=== PATIENT | male | born 1960 | race Caucasian/White ===

== ENCOUNTER → 2016-07-30 | Outpatient (CLI) | payer OTHER ==
[~2016-07-30] MED LIST: GLIM4TAB2 PO; HYDR-971 PO; IOHEXOL 240 MG/ML 50ML VIAL. IV ONE; IOHEXOL 300 MG/ML 100ML VIAL. IV ONE; LISI1TAB7 PO; MELO-150 PO; METF10002 PO; [UNRECOGNIZED DRUG - CODE] IU
--- NOTE | 2016-07-30 12:23 | KCIC ---
PROCEDURE CT abdomen and pelvis with and without contrast. HISTORY Left lower quadrant pain, started 1 week ago, worse last night. TECHNIQUE Helical CT imaging of the abdomen and pelvis is performed after oral contrast and before and after 100 cc of Omnipaque 300 IV contrast. PQRS: One or more the following individualized dose reduction techniques were utilized for the study: 1. Automated exposure control. 2. Adjustment of the mA and/or kV according to patient size. 3. Use of iterative reconstruction technique. COMPARISON None. FINDINGS Lung bases clear. Cardiac size normal. Mild fatty infiltration of the liver. There is a 1.3 cm cyst in the anterior spleen. Spleen otherwise homogeneous. The gallbladder, pancreas, adrenal glands, and abdominal aortic caliber are normal. There is a 1.9 cm exophytic lesion at the lower pole of the right kidney that is greater than fluid attenuation but could be a hyperdense cyst. Lesion is incompletely characterized. There is a 5.7 centimeter exophytic cyst at the lower pole of the left kidney. Kidneys enhance symmetrically without hydronephrosis. There is no renal, ureteral, or bladder calculus. Stomach unremarkable. No dilated small bowel. There is focal diverticulitis of the distal descending colon, image 63, coronal image 28. There is no perforation or peridiverticular abscess. There are other scattered diverticula in the colon without inflammation. The appendix is normal. No abdominal adenopathy or free fluid. Small fat containing periumbilical hernia. Urinary bladder is normal. Prostate size normal. No pelvic free fluid. No acute bone abnormality. Partial butterfly type vertebral body posteriorly of T10. IMPRESSION 1. Focal diverticulitis of the distal descending colon. No perforation or peridiverticular abscess. 2. Small exophytic lesion at the lower pole of the right kidney is not definitely a cyst. There is a large left renal cyst. Recommend further evaluation with outpatient renal ultrasound. 3. Mild fatty infiltration of the liver. 4. Small splenic cyst. Electronically signed by: Jasbir Rubio MD (Jul 30, 2016 12:21:49)
== END | disposition home or self-care (01) ==
LOC: KCIC CT 10:43
PROVIDERS: ATTEND Physician Assistant
DX: R10.32 Left lower quadrant pain (principal); K76.0 Fatty (change of) liver, not elsewhere classified; D73.4 Cyst of spleen
CPT/HCPCS: 74178; 82565; Q9966; Q9967

== ENCOUNTER 2017-04-24 11:11 | Emergency (ER) | payer OTHER ==
[~2017-04-24] VITALS: Ht 180.3 cm; Wt 129.3 kg
[~2017-04-24 11:11] MED LIST changes: -IOHEXOL 240 MG/ML 50ML VIAL. IV ONE; -IOHEXOL 300 MG/ML 100ML VIAL. IV ONE; -MELO-150 PO; +MELO15TA23 PO; +METF-620 PO; -METF10002 PO
[2017-04-24 11:27] VITALS: BP 143/86
--- NOTE | 2017-04-24 11:32 | PHYS DOC ---
Past Medical History Past Medical History: Diabetes-Type II, Hypertension Past Surgical History: No Surgical History Alcohol Use: None Drug Use: None Adult General Chief Complaint Chief Complaint: LACERATION/AVULSION [facility] HPI Patient is a 56 year old male who presents with a jagged laceration to his right hand. The patient has ACB radial with an antenna and while he was cranking the antenna up the handle snapped. This allowed the cable to freefall and the patient started to grab it with his hand causing a laceration. He is unsure of his tetanus status. The patient wrapped the hand in a towel and immediately presented to the emergency department. Bleeding is currently controlled. Review of Systems Review of Systems Constitutional: Denies fever or chills [] Respiratory: Denies cough or shortness of breath [] Cardiovascular: No additional information not addressed in HPI [] Musculoskeletal: Denies back pain or joint pain [] Integument: See history of present illness Neurologic: Denies headache, focal weakness or sensory changes [] Endocrine: Denies polyuria or polydipsia [] All other systems were reviewed and found to be within normal limits, except as documented in this note. Current Medications Current Medications Current Medications Medications (Trade) Dose Ordered Sig/Adarsh Start Time Stop Time Status Last Admin Dose Admin Acetaminophen/ Hydrocodone Bitart (Lortab 10/325) 1 tab 1X ONCE 04/24/17 12:00 04/24/17 12:01 DC 04/24/17 11:36 1 TAB Diphtheria/ Tetanus/Acell Pertussis (Boostrix) 0.5 ml ONCE ONCE 04/24/17 12:00 04/24/17 12:01 DC 04/24/17 12:51 0.5 ML Lidocaine/ Epinephrine (Xylocaine 2%-Epi 1:100,000) 20 ml 1X ONCE 04/24/17 12:00 04/24/17 12:01 DC 04/24/17 12:00 20 ML Allergies Allergies Allergies Coded Allergies Type Severity Reaction Last Updated Verified No Known Drug Allergies 02/18/16 No Physical Exam Physical Exam Constitutional: Well developed, well nourished, no acute distress, non-toxic appearance. [] Cardiovascular:Heart rate regular rhythm, no murmur [] Lungs & Thorax: Bilateral breath sounds clear to auscultation [] Abdomen: Bowel sounds normal, soft, no tenderness, no masses, no pulsatile masses. [] Skin: Back: No tenderness, no CVA tenderness. [] Extremities: ROM intact, no edema. [] Neurologic: Alert and oriented X 3, normal motor function, normal sensory function, no focal deficits noted. [] Psychologic: Affect normal, judgement normal, mood normal. [] Current Patient Data Vital Signs Vital Signs Date Time Temp Pulse Resp B/P (MAP) Pulse Ox O2 Delivery O2 Flow Rate FiO2 04/24/17 11:36 18 96 Room Air 04/24/17 11:27 96 143/86 (105) 04/24/17 11:12 97.8 97.8 EKG EKG [] Radiology/Procedures Radiology/Procedures Procedure: Laceration repair Indications: 1.5 cm jagged laceration to the palmar surface of the right hand that is deep and gaping Patient consent: The procedure and risks were explained in detail. Questions were encouraged and answered. Anesthesia: 2% buffered lidocaine with epinephrine, local Description of procedure: The area was prepped and draped using sterile techniques. Wound was cleansed with antiseptic solution. Local infiltration with 2% lidocaine were well-tolerated. Nonabsorbable suture material was used. A sterile dressing was applied. Number of stitches: 7 Patient tolerated the procedure well. Complications: None Estimated blood loss less than 10 ml Disposition: Wound care instructions were given. Patient discharged home. Follow up in 7-10 days for suture removal. Course & Med Decision Making Course & Med Decision Making Pertinent Labs and Imaging studies reviewed. (See chart for details) 1. Laceration 2. Need for tetanus vaccination Following repair of this laceration the patient was also given a tetanus vaccine and placed on an antibiotic as well as pain medication. Please do not operate heavy machinery or drive while taking the pain medication. Keep wound clean and dry. See follow-up instructions for care of the laceration. Follow-up in 7-10 days for suture removal. If any signs of infection occur please follow- up with your primary care provider or return to the ED. Dragon Disclaimer Dragon Disclaimer This electronic medical record was generated, in whole or in part, using a voice recognition dictation system. Departure Departure Referrals: LISSETH MARIO MD (PCP) Scripts Amoxicillin/Potassium Clav (AMOX TR-K CLV 500-125 MG TAB) 1 Each Tablet 1 TAB PO BID, #20 TAB Prov: BRANDY RON APRN 04/24/17 Hydrocodone/Apap 5-325 (NORCO 5-325 TABLET) 1 Each Tablet 1-2 TAB PO Q4-6HRS, #20 TAB Prov: BRANDY RON APRN 04/24/17 BRANDY RON APRN Apr 24, 2017 11:32
[2017-04-24] MEDS ORDERED: DIPHTH,PERTUSS(ACELL),TET TOX 0.5 ML DISP.SYRIN. VAX IM ONE (12:00)
[2017-04-24] MEDS ORDERED: LIDOCAINE 2%/EPI 1:100,000 20 ML VIAL. IJ ONE (12:00)
[2017-04-24] MEDS ORDERED: HYDROcodone/APAP 10/325 1 TAB TABLET PO ONE (12:00)
--- NOTE | 2017-04-24 12:12 | RAD ---
HAND RIGHT 3V Clinical Indication: Trauma with laceration to the palm of the right hand. Comparison: None. Technique: Frontal, oblique and lateral views of the right hand are obtained. Findings: No acute fracture or dislocation is seen. Carpal bones remain aligned. Soft tissue swelling with probable laceration is present between the first and second digits. No radiopaque foreign body is seen. IMPRESSION: No acute osseous injury seen.
[2017-04-24] MEDS ORDERED: HYDR-971 PO (13:35)
[2017-04-24] MEDS ORDERED: AMOX1TAB10 PO (13:35)
== END 2017-04-24 14:00 | disposition home or self-care (01) ==
LOC: ER 11:11
DX: S61.411A Laceration without foreign body of right hand, initial encounter (principal); I10 Essential (primary) hypertension; E11.9 Type 2 diabetes mellitus without complications; W23.0XXA Caught, crushed, jammed, or pinched between moving objects, initial encounter; Y93.89 Activity, other specified; Y99.8 Other external cause status; Y92.89 Other specified places as the place of occurrence of the external cause
CPT/HCPCS: 12001; 73130; 90471; 90715; 99284; J3490

== ENCOUNTER 2017-04-24 15:36 | Emergency (ER) | payer OTHER ==
[~2017-04-24 15:36] MED LIST changes: +AMOX1TAB10 PO
[2017-04-24 15:50] VITALS: BP 140/88
--- NOTE | 2017-04-24 16:21 | PHYS DOC ---
Past Medical History Past Medical History: Diabetes-Type II, Hypertension Past Surgical History: No Surgical History Alcohol Use: None Drug Use: None Adult General Chief Complaint Chief Complaint: WOUND CHECK [facility] HPI Patient is a 56 year old presents to the emergency department with complaints of right hand laceration. Patient was evaluated earlier today in the emergency department after lacerating his hand on his CB cable line and handle. Patient had the laceration repaired and went home. He states on arrival home he noted bloody dressing and when he removed it he states that the wound was gaping open. He returns for further evaluation. He has no complaints on arrival hemostasis obtained prior to arrival. Review of Systems Review of Systems Constitutional: Denies fever or chills [] Eyes: Denies change in visual acuity, redness, or eye pain [] HENT: Denies nasal congestion or sore throat [] Respiratory: Denies cough or shortness of breath [] Cardiovascular: No additional information not addressed in HPI [] GI: Denies abdominal pain, nausea, vomiting, bloody stools or diarrhea [] : Denies dysuria or hematuria [] Musculoskeletal: Denies back pain or joint pain [] Integument: Laceration Neurologic: Denies headache, focal weakness or sensory changes [] Endocrine: Denies polyuria or polydipsia [] All other systems were reviewed and found to be within normal limits, except as documented in this note. Allergies Allergies Allergies Coded Allergies Type Severity Reaction Last Updated Verified No Known Drug Allergies 02/18/16 No Physical Exam Physical Exam Constitutional: Well developed, well nourished, no acute distress, non-toxic appearance. [] Extremities: Right hand: Thenar aspect with a 2.5 cm gaping laceration. It is partial-thickness. Patient has full range of motion of the thumb and forefinger without difficulty. Neurovascular intact distally. Remainder right hand exam unremarkable. Current Patient Data Vital Signs Vital Signs Date Time Temp Pulse Resp B/P (MAP) Pulse Ox O2 Delivery O2 Flow Rate FiO2 04/24/17 15:50 98.6 88 16 97 Room Air 98.6 EKG EKG [] Radiology/Procedures Radiology/Procedures [] Course & Med Decision Making Course & Med Decision Making Pertinent Labs and Imaging studies reviewed. (See chart for details) []Procedure note: Laceration anesthetized with 1% lidocaine 3 mL. Wound was cleansed with Betadine and normal saline, copiously irrigated. Wound was explored for foreign body, 4 sutures were removed. Multiple debridement. The wound was repaired undermining with 6-0 Vicryl 4 simple interrupted sutures. Skin was closed with 3-0 Ethilon, #5 simple interrupted sutures. Patient tolerated procedure well. Thing applied by nursing staff. Dragon Disclaimer Dragon Disclaimer This electronic medical record was generated, in whole or in part, using a voice recognition dictation system. Departure Departure Impression: Primary Impression: Hand laceration Disposition: 01 HOME, SELF-CARE Condition: STABLE Referrals: LISSETH MARIO MD (PCP) Patient Instructions: Suture Removal-Brief Problem Qualifiers Primary Impression: Hand laceration Encounter type: subsequent encounter Foreign body presence: with foreign body Laterality: right Qualified Codes: S61.421D - Laceration with foreign body of right hand, subsequent encounter JOLENE HENRY APRN Apr 24, 2017 16:21
== END 2017-04-24 16:48 | disposition home or self-care (01) ==
LOC: ER 15:36
DX: S61.411A Laceration without foreign body of right hand, initial encounter (principal); I10 Essential (primary) hypertension; E11.9 Type 2 diabetes mellitus without complications; W26.8XXA Contact with other sharp object(s), not elsewhere classified, initial encounter; Y93.89 Activity, other specified; Y92.89 Other specified places as the place of occurrence of the external cause; Y99.8 Other external cause status
CPT/HCPCS: 12020; 12041; 99284-25

== ENCOUNTER 2017-10-19 10:00 | Inpatient (IN) | payer OTHER ==
[~2017-10-19] VITALS: Ht 182.9 cm; Wt 126.1 kg
[~2017-10-19 10:00] MED LIST changes: -METF-620 PO; +METF10007 PO
[2018-01-03] MEDS ORDERED: FERR325T14 PO (09:44)
[2018-01-03] MEDS ORDERED: EXEN10PE3 SQ (09:44)
[2018-01-03] MEDS ORDERED: MULT-460 PO (17:46)
[2018-01-03] MEDS ORDERED: CHOL100013 PO (17:46)
[2018-01-03] MEDS ORDERED: HYDR-2758 PO (17:46)
--- NOTE | 2018-01-17 15:19 | PDOC1 ---
History and Physical Date of Admission Date of Admission DATE: 01/18/18 Identification/Chief Complaint Chief Complaint left knee osteoarthritis pain Source Source: Chart review History of Present Illness History of Present Illness The patient is a 56 y/o male with bilateral knee pain for several months. The left knee is more painful than the right. He describes the pain as sharp and throbbing and rates its a 10/10. He notes popping and tingling occasionally. The pain is constant and it interferes with his sleep. He has taken Meloxicam, worn a knee brace, and had a cortisone injection in the left knee, but none provided him pain relief. 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 Past Medical History Cardiovascular: HTN Endocrine: Diabetes Past Surgical History Past Surgical History: No pertinent history Family History Family History: Hypertension Social History Smoke: Quit ALCOHOL: none Drugs: None Current Medications Current Medications Current Medications Ondansetron HCl (Zofran) 4 mg PRN Q6HRS PRN IV NAUSEA/VOMITING; Start 01/18/18 at 07:00; Stop 01/19/18 at 06:59 Fentanyl Citrate (Fentanyl 2ml Vial) 25 mcg PRN Q5MIN PRN IV MILD PAIN; Start 01/18/18 at 07:00; Stop 01/19/18 at 06:59 Fentanyl Citrate (Fentanyl 2ml Vial) 50 mcg PRN Q5MIN PRN IV MODERATE TO SEVERE PAIN; Start 01/18/18 at 07:00; Stop 01/19/18 at 06:59 Morphine Sulfate (Morphine Sulfate) 1 mg PRN Q10MIN PRN IV SEVERE PAIN; Start 01/18/18 at 07:00; Stop 01/19/18 at 06:59 Ringer's Solution 1,000 ml @ 30 mls/hr Q24H IV ; Start 01/18/18 at 07:00; Stop 01/18/18 at 18:59 Lidocaine HCl (Xylocaine-Mpf 1% 2ml Vial) 2 ml PRN 1X PRN ID IV START; Start at 07:00; Stop 01/19/18 at 06:59 Hydromorphone HCl (Dilaudid) 0.5 mg PRN Q10MIN PRN IV SEV PAIN, Second choice; Start 01/18/18 at 07:00; Stop 01/19/18 at 06:59 Prochlorperazine Edisylate (Compazine) 5 mg PACU PRN PRN IV NAUSEA, MRX1; Start 01/18/18 at 07:00; Stop 01/19/18 at 06:59 Morphine Sulfate 5 mg/Ketorolac Tromethamine 30 mg/Ropivacaine 60 ml/ Epinephrine HCl 0.5 mg/Sodium Chloride 100 ml @ 100 mls/hr 1X ONCE INT ART ; Start 01/18/18 at 06:00; Stop 01/18/18 at 06:59 Active Scripts Active Reported Vitamin D (Cholecalciferol (Vitamin D3)) 1,000 Unit Capsule 125 Mg PO DAILY Multiple Vitamin (Multivitamin With Minerals) 1 Each Tablet 1 Each PO DAILY Hydrocodone-Apap 5-325 (Hydrocodone Bit/Acetaminophen) 1 Each Tablet 1 Tab PO PRN Q6HRS PRN Ferrous Sulfate 325 Mg Tablet 325 Mg PO DAILY Byetta (Exenatide) 10 Mcg/0.04 Ml Pen.injctr 10 Mcg SQ BIDAC Lisinopril-Hctz 20-25 Mg Tab (Lisinopril/Hydrochlorothiazide) 1 Each Tablet 0.5 Tab PO DAILY Glimepiride 4 Mg Tablet 1 Tab PO DAILY Metformin Hcl 1,000 Mg Tablet 1,000 Mg PO BID Meloxicam 15 Mg Tablet 1 Tab PO DAILY Allergies Allergies: Coded Allergies: No Known Drug Allergies (Unverified , 02/18/16) Physical Exam General: Alert, Oriented X3, Cooperative, No acute distress HEENT: Atraumatic, EOMI Lungs: Normal air movement Heart: RRR Abdomen: Soft Extremities: No clubbing, No cyanosis, Normal pulses, Other (LEFT KNEE: Varus alignment. No masses. No detectable effusion. Tenderness on the medial and lateral joint lines. Range of motion is 15-115 degrees. There is crepitus with range of motion, and pain at the extremes of motion. The knee is stable to varus and valgus stress without subluxation or laxity. Muscle strength is normal (5/5) for quadriceps and hamstrings, and muscle tone is normal. The skin is normal with no scars, rashes, lesions or ulcers. Light touch sensation is intact. No edema and no varicosities. Dorsalis pedis pulse is intact and capillary refill is normal.) Skin: No rashes, No breakdown, No significant lesion Neuro: Normal speech, Sensation intact Psych/Mental Status: Mental status NL, Mood NL Images Images IMAGING REPORT 45 degree PA weightbearing view of both knees, lateral, and patella view of the left knee. Clinical information: Left knee pain Comparison: 2012 Findings Bones: For Joints: There is narrowing of both knees joints medially, worse on the left knee which is nearly bone on bone. There is no apparent sclerosis. This narrowing has progressed significantly since 2012. There are now also prominent patellar enthesophytes of bilateral knees. These have also progress since 2012. Soft tissue: Normal. Impression: Osteoarthritis of both knees, and other degenerative changes, such as enthesophytes. Significant progression since 2011. Dictated and Signed Using Voice Recognition Software Jose Lawrence MD. IMAGING REPORT Joint survey, hips knees and ankles Clinical information: Preoperative for total knee arthroplasty Comparison: None. Findings Bones: The angle between the right hip-ankle mechanical axis and the femoral shaft is 5 degrees The angle between the left hip-ankle mechanical axis and the femoral shaft is 5 degrees. Right lower extremity alignment shows 1 degree of varus alignment. The left knee shows 5 degrees of varus alignment. Joints: There is narrowing of the right knee joint medially. There is significant narrowing of the left knee joint medially. There is mild narrowing of the right knee joint medially. 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 Soft tissue: Normal. Impression: Varus alignment of the left knee, 5 degrees Near normal alignment of the right knee. The difference between the mechanical axis and femoral shaft anatomic axis is 5 degrees bilaterally. Dictated and Signed Using Voice Recognition Software Jose Lawrence MD VTE Prophylaxis Ordered VTE Prophylaxis Devices: Yes VTE Pharmacological Prophylaxi: Yes Assessment/Plan Assessment/Plan Left knee osteoarthritis pain. The patient is a 56 year old male with bilateral knee osteoarthritis. He has tried nonoperative treatment without success. The arthritis pain impacts his quality of life on a daily basis. We discussed the risks benefits and alternatives. He would like to proceed with a left total knee replacement. We will send him to the [facility] preoperatively, and he will schedule at his convenience. We discussed the risks and benefits of knee replacement including bleeding, infection, post-operative stiffness, instability , holden-prosthetic fracture, DVT and PE. We discussed the increased risk of revision due to his young age and job demands. All questions were answered. He would like to proceed with the surgery to improve his pain and range of motion. PRIYANKA OBANDO Jan 17, 2018 15:19
[2018-01-18] VITALS (9 sets, daily range): BP systolic 133–164; BP diastolic 63–92
[2018-01-18] MEDS ORDERED: VANCOMYCIN 10GM VIAL for OR. ONE (05:54)
[2018-01-18] MEDS ORDERED: TOBRAMYCIN POWDER 1.2 GM VIAL. ONE (05:54)
[2018-01-18] MEDS ORDERED: MORPHINE SULFATE 5 MG, KETOROLAC 30MG VIAL 30 MG, ROPIVacaine 0.5% PF 60 ML, EPINEPHrin... INT ART ONE ×5 (06:00)
[2018-01-18] MEDS ORDERED: TRANEXAMIC ACID 1,000 MG in IV NS 50ML -- 1ST BAG INJ ONE (06:00)
[2018-01-18] MEDS ORDERED: MELOXICAM 7.5 MG TABLET PO PRN (06:00)
[2018-01-18] MEDS ORDERED: HYDROcodone/APAP 7.5/325MG 1 TAB TABLET PO PRN ×2 (06:00→09:45)
[2018-01-18] MEDS ORDERED: VANCOMYCIN 1 GM VIAL. ONE (06:01)
[2018-01-18] MEDS ORDERED: LIDOCAINE 2% 100 MG/5 ML SYRINGE. ONE (06:04)
[2018-01-18] MEDS ORDERED: PROPOFOL 20 ML IV ONE (06:54)
[2018-01-18] MEDS ORDERED: MIDAZOLAM HCL/PF 2 MG/2 ML VIAL. ONE (06:55)
[2018-01-18] MEDS ORDERED: fentaNYL PF VIAL 250 MCG/5 ML VIAL ONE (06:55)
[2018-01-18] MEDS ORDERED: MORPHINE SULFATE 2 MG/ML VIAL. IV PRN ×2 (07:00→09:45)
[2018-01-18] MEDS ORDERED: PROCHLORPERAZINE 10 MG/2 ML VIAL. IV PRN ×2 (07:00→09:45)
[2018-01-18] MEDS ORDERED: IV RINGERS,LACTATED 1000ML 1,000 ML IV SCH (07:00)
[2018-01-18] MEDS ORDERED: LIDOCAINE 1% PF 2 ML VIAL. ID PRN (07:00)
[2018-01-18] MEDS ORDERED: fentaNYL PF VIAL 100 MCG/2 ML VIAL IV PRN ×4 (07:00→09:45)
[2018-01-18] MEDS ORDERED: HYDROmorphone 2 MG/ML VIAL IV PRN (07:00)
[2018-01-18] MEDS ORDERED: ONDANSETRON PF 4 MG/2 ML VIAL. IV PRN (07:00)
[2018-01-18] MEDS ORDERED: TRANEXAMIC ACID 1,000 MG in IV NS 50ML -- 2ND BAG INJ ONE (08:00)
[2018-01-18] MEDS ORDERED: DEXAMETHASONE SOD PHOS 20 MG/5 ML VIAL. ONE (08:09)
[2018-01-18] MEDS ORDERED: ONDANSETRON PF 4 MG/2 ML VIAL. ONE (08:09)
[2018-01-18] MEDS ORDERED: HYDROmorphone 2 MG/ML VIAL ONE (08:24)
[2018-01-18] MEDS ORDERED: 0.9 % SODIUM CHLORIDE 10 ML DISP.SYRIN. IV PRN (09:45)
[2018-01-18] MEDS ORDERED: ZOLPIDEM 5 MG TABLET. PO PRN (09:45)
[2018-01-18] MEDS ORDERED: ACETAMINOPHEN 325 MG TABLET. PO PRN (09:45)
[2018-01-18] MEDS ORDERED: traMADol 50 MG TABLET PO PRN ×2 (09:45)
[2018-01-18] MEDS ORDERED: diphenhydrAMINE 50 MG/ML VIAL IV PRN (09:45)
[2018-01-18] MEDS ORDERED: METOCLOPRAMIDE HCL 10 MG/2 ML VIAL. IV PRN (09:45)
[2018-01-18] MEDS ORDERED: MORPHINE SULFATE 4 MG/ML VIAL. IV PRN ×2 (09:45)
[2018-01-18] MEDS ORDERED: CALCIUM CARBONATE 500 MG TAB.CHEW PO PRN (09:45)
[2018-01-18] MEDS ORDERED: DEXTROSE 50% 25 GM / 50ML DISP.SYRIN. IV PRN (09:45)
[2018-01-18] MEDS ORDERED: PROCHLORPERAZINE 5 MG TABLET. PO PRN (09:45)
[2018-01-18] MEDS ORDERED: MORPHINE SULFATE 10 MG/ML VIAL. IV PRN (09:45)
[2018-01-18] MEDS ORDERED: HYDROcodone/APAP 10/325 1 TAB TABLET PO PRN (09:45)
--- NOTE | 2018-01-18 09:48 | PDOC4 ---
Operative Note Operative Note Date of Procedure: January 18, 2018 Pre-Op Diagnosis: Osteoarthritis left knee Post-Op Diagnosis: Osteoarthritis left knee Procedure: left total knee arthroplasty Surgeon: Maggie Lawrence MD Gas Turbine Mechanic: Rae Ramirez PA-C Anesthesia: General EBL: 100 mL Specimens Obtained: left knee bone and soft tissue Complications: none Implant Company: [employer] Drains: hemovac plus pain catheter Tourniquet time: 51 Minutes Tourniquet Pressure: 350 mm Hg Indications for Procedure: Arthritis pain unrelieved by nonoperative management. Findings: Severe osteoarthritis with bone on bone contact medially with full thickness cartilage loss in the patellofemoral and lateral compartments Implants used: Size 6 left bicruciate stabilized Journey II BCS Oxinium femoral component, size 6 left Journey nonporous tibial baseplate, size 5-6 11 mm left Journey II BCS XLPE constrained articular insert, 38 mm oval Karly II resurfacing patellar component Procedure in Detail: The patient was identified in the preoperative holding area, and the correct left lower extremity was marked by me. The patient was taken to the operating room where the patient was anesthetized by the Department of Anesthesia. Preoperative antibiotics were given intravenously. Tranexamic acid 1 g was given intravenously for intraoperative hemostasis. A "time-out" procedure was performed. The patient was positioned supine on the operative table with a tourniquet on the upper left thigh. The left lower limb was thoroughly prepped and draped in sterile fashion. An impervious stockinet and adhesive drape were used such that the skin was entirely covered. An Garcia leg boucher was used. The operating team wore personal exhaust-ventilated hoods. The limb was elevated to exsanguinate it, and the tourniquet was inflated. A midline skin incision was made with a scalpel using the patella and tibial tubercle as landmarks. Electrocautery was used for hemostasis. My physical therapist assistant used rake retractors. A medial parapatellar arthrotomy incision was used with extension into the distal quadriceps tendon. The patella was retracted laterally and Hohmann retractors were now used by my physical therapist assistant. Excess synovium, the menisci, and the cruciate ligaments were resected sharply. The patella was assessed and excess synovium and osteophytes around the patellar articulation were removed. The patella was measured with a caliper, cut freehand with a saw using caliper measurements, sized, and then drilled for an oval three-pegged patella component. Periarticular anesthetic injection was used in the suprapatellar pouch and distal quadriceps muscle. Whitesides's line and the transepicondylar axis were marked on the femur. An intra-medullary 5 degree cutting guide was pinned to the femur, and a distal femoral cut was made with an oscillating saw. No additional distal femoral resection was required. My physical therapist assistant held Hohmann retractors and an [employer] retractor to protect the medial and lateral collateral ligaments, the patellar tendon, the skin and the other soft tissues. A posterior referencing guide was applied with external rotation of 3 to match Whitesides line. A 5-in-1 Journey II cutting guide was then applied and pinned to the femur. The posterior, anterior, and all chamfer cuts were made with the oscillating saw. An extramedullary guide was pinned to the tibia and rotational alignment and the planned resection thickness assessed. An external alignment pepper was used to verify the planned cut in the varus-valgus plane and regarding posterior slope referencing the tibial tubercle, the tibial shaft, the ankle joint, and the second metatarsal. The upper tibia was cut made with an oscillating saw. My physical therapist assistant held Hohmann retractors and a posterior cruciate ligament retractor to protect the medial and lateral collateral ligaments, the patellar tendon, the skin, the peroneal nerve and the other soft tissues. The upper tibia was sized with a trial baseplate. The posterior compartment was cleared of osteophytes and loose bodies. Periarticular anesthetic injection was used in the posterior compartment. The box cut for a posterior stabilized component was made. A preliminary reduction was performed with a trial femur, trial tibial baseplate and trial polyethylene. Soft-tissue balancing was now performed, and extension and rotation of the alignments was checked using a guide pepepr in the tibial trial and a guide pin in the femur. No additional releases were required. The stability was assessed using different thicknesses of tibial articular surface to find satisfactory stability and good range of motion. The rotation of the tibial component was marked on the upper tibia. Final trial reduction was now performed verifying patella tracking and tibiofemoral stability and alignment. The tibia preparation was completed with a drill, saw, and fin punch at the previously noted rotation. The final implants were verified and opened. Outer gloves were changed by the operating team. The bone cuts were washed thoroughly with the [place] InterPulse device and dried. I asked Ms. Ramirez to leave the room while the cement was mixed. Two packages of Marion + Nephew Rally HV bone cement were mixed in powdered form with Vancomycin 1gm and Tobramycin 1.2 gm, and then vacuum-mixed with the monomer, and placed into a cement gun. The cut surfaces of the bone were thoroughly dried with Salas-tip suction and with laparotomy sponges for cement interdigitation. The final components were cemented into place. The knee was kept at full extension while the cement hardened, and excess cement was removed. Tranexamic acid 1 g was redosed intravenously for additional intraoperative hemostasis. The tourniquet was released, and electrocautery was used for hemostasis. A final periarticular anesthetic injection was used for pain relief. Ms. Ramirez returned. A final check of [id number] and stability was made, and the polyethylene implant final size was chosen. The polyethylene implant was secured to the tibial baseplate, and the knee was reduced a final time and range of motion and stability was confirmed. Thorough irrigation was used. Hemovac and pain catheter were used. The arthrotomy was closed with interrupted [id number] # 1 PDS suture. The arthrotomy incision was then run with #1 STRATAFIX Symmetric PDS Plus Knotless suture. The subcutaneous tissues were closed with #2-0 Vicryl by my physical therapist assistant. The skin was approximated with michelle by my physical therapist assistant. The skin incision was then covered and reinforced with Acticoat and a SKYE single use negative pressure wound therapy dressing Needle and sponge counts were correct. There were no apparent complications. The patient returned to the recovery room in stable condition. MAGGIE LAWRENCE MD Jan 18, 2018 09:48
--- NOTE | 2018-01-18 10:37 | RAD ---
Two-view left knee dated 01/18/2018. No comparison available. Clinical data indication: Postop knee arthroplasty. FINDINGS: 3 views left knee show interval total knee arthroplasty. Femoral and tibial components are intact. No periprosthetic fracture or malalignment. Overlying skin michelle with soft tissue swelling and soft tissue gas. Suprapatellar drain in place. IMPRESSION: Status post left knee arthroplasty. Electronically signed by: Dl Ryan MD (01/18/2018 10:34 AM) [id number]
[2018-01-18] MEDS ORDERED: INSULIN LISPRO 100 UNIT/ML 3ML VIAL. SQ ONE (11:15)
[2018-01-18] MEDS: ceFAZolin SODIUM 3 GM in IV DEXTROSE 5% 100ML 100 ML IV SCH ×2 (14:20→19:23)
[2018-01-18] MEDS: MULTIVITAMIN with MINERAL TABLET. PO SCH (14:21)
[2018-01-18] MEDS: SENNOSIDES/DOCUSATE 8.6/50MG TABLET. PO SCH (14:21)
[2018-01-18] MEDS: CHOLECALCIFEROL (VITAMIN D3) 5,000 UNIT CAPSULE PO SCH (14:21)
[2018-01-18] MEDS: GLIMEPIRIDE 2 MG TABLET. PO SCH (14:22)
[2018-01-18] MEDS: hydroCHLOROthiazide 12.5 MG CAPSULE PO SCH (14:23)
[2018-01-18] MEDS: LISINOPRIL 10 MG TABLET PO SCH (14:23)
[2018-01-18] MEDS: FERROUS SULFATE 325 MG TABLET. PO SCH (17:24)
[2018-01-18] MEDS: EXENATIDE 10 MCG SQ SCH (17:29)
[2018-01-18] MEDS: KETOROLAC 30MG VIAL 30 MG, BUPIVACAINE MPF 0.25% 20 ML, EPINEPHrine 0.5 MG in TOTAL VOL... INT ART SCH (18:21)
[2018-01-18] MEDS: IV DEXTROSE 5 %-0.45 % NACL 1,000 ML IV SCH ×2 (19:23→19:37)
[2018-01-18] MEDS: ASPIRIN ENTERIC COATED 325 MG TABLET.DR. PO SCH (21:00)
[2018-01-19] MEDS: ceFAZolin SODIUM 3 GM in IV DEXTROSE 5% 100ML 100 ML IV SCH (01:36)
[2018-01-19] MEDS: oxyCODONE/APAP 7.5/325 1 TAB TABLET PO PRN ×2 (01:54→06:31)
[2018-01-19 02:25] VITALS: BP 115/71
[2018-01-19] MEDS: IV DEXTROSE 5 %-0.45 % NACL 1,000 ML IV SCH ×2 (05:37→15:37)
[2018-01-19 05:49] LABS: HEMOGLOBIN 12.6 g/dL (13.0-17.5)
[2018-01-19] MEDS: KETOROLAC 30MG VIAL 30 MG, BUPIVACAINE MPF 0.25% 20 ML, EPINEPHrine 0.5 MG in TOTAL VOL... INT ART SCH (05:56)
[2018-01-19] MEDS ORDERED: MAGNESIUM HYDROXIDE 2,400 MG/30 ML ORAL.SUSP. PO PRN (06:00)
[2018-01-19 06:12] VITALS: BP 126/75
[2018-01-19] MEDS: GLIMEPIRIDE 2 MG TABLET. PO SCH (07:41)
[2018-01-19] MEDS: CHOLECALCIFEROL (VITAMIN D3) 5,000 UNIT CAPSULE PO SCH (07:42)
[2018-01-19] MEDS: FERROUS SULFATE 325 MG TABLET. PO SCH ×2 (07:42→17:13)
[2018-01-19] MEDS: SENNOSIDES/DOCUSATE 8.6/50MG TABLET. PO SCH (07:42)
[2018-01-19] MEDS: ASPIRIN ENTERIC COATED 325 MG TABLET.DR. PO SCH ×2 (07:42→20:32)
[2018-01-19] MEDS: MULTIVITAMIN with MINERAL TABLET. PO SCH (07:42)
[2018-01-19] MEDS: hydroCHLOROthiazide 12.5 MG CAPSULE PO SCH (07:46)
[2018-01-19] MEDS: LISINOPRIL 10 MG TABLET PO SCH (07:47)
[2018-01-19] MEDS: EXENATIDE 10 MCG SQ SCH ×2 (07:49→17:14)
[2018-01-19] MEDS ORDERED: NON FORMULARY ITEM (Multivitamin With Minerals (Multiple Vitamin) 1 EACH) PO SCH (09:00)
[2018-01-19 11:50] VITALS: BP 144/78
--- NOTE | 2018-01-19 12:04 | PDOC ---
PROGRESS NOTES Subjective Subjective Doing well today. States he has some soreness in his knee. Objective Vital Signs Vital Signs Date Time Temp Pulse Resp B/P (MAP) Pulse Ox O2 Delivery O2 Flow Rate FiO2 01/19/18 11:50 108 144/78 (100) 01/19/18 08:10 Room Air 01/19/18 06:31 20 95 01/19/18 06:12 98.9 98.9 01/19/18 03:00 2.0 Physical Exam Postop dressing clean and dry. Hemovac and IAC in place. Calf soft and nontender with a negative Negin's sign. Good plantarflexion and dorsiflexion at foot, with no evidence of neurovascular injury. Peripheral pulses and light touch sensation intact. Labs Laboratory Tests Test 01/18/18 06:19 01/18/18 09:48 01/18/18 16:31 01/18/18 20:33 Glucose (Fingerstick) 218 mg/dL (70-99) 291 mg/dL (70-99) 268 mg/dL (70-99) 170 mg/dL (70-99) Test 01/19/18 04:45 01/19/18 06:24 01/19/18 11:44 Hemoglobin 12.6 g/dL (13.0-17.5) Hematocrit 36.0 % (39.0-53.0) Mean Corpuscular Hemoglobin Concent 35 g/dL (31-37) Glucose (Fingerstick) 169 mg/dL (70-99) 219 mg/dL (70-99) Laboratory Tests Test 01/18/18 16:31 01/18/18 20:33 01/19/18 04:45 01/19/18 06:24 Glucose (Fingerstick) 268 mg/dL (70-99) 170 mg/dL (70-99) 169 mg/dL (70-99) Hemoglobin 12.6 g/dL (13.0-17.5) Hematocrit 36.0 % (39.0-53.0) Mean Corpuscular Hemoglobin Concent 35 g/dL (31-37) Test 01/19/18 11:44 Glucose (Fingerstick) 219 mg/dL (70-99) Imaging Postop x-ray images and report reviewed. Satisfactory TKA without apparent complications. Assessment Assessment POD #1 left TKA Plan Plan of Care Continue POC including DVT ppx and therapy. He is planning to do outpt PT at [facility] at discharge. PRIYANKA OBANDO Jan 19, 2018 12:04
[2018-01-19] MEDS ORDERED: DEXTROSE 50% 25 GM / 50ML DISP.SYRIN. IV PRN (12:15)
[2018-01-19] MEDS: MELOXICAM 7.5 MG TABLET PO SCH (12:34)
[2018-01-19] MEDS: INSULIN LISPRO 300 UNITS/3 ML INSULN.PEN. SQ SCH ×2 (12:35→17:18)
[2018-01-19] MEDS: oxyCODONE/APAP 5/325 1 TAB TABLET PO PRN ×4 (12:35→23:14)
[2018-01-19] MEDS ORDERED: BISACODYL 10 MG SUPP.RECT. PR PRN (16:00)
[2018-01-19 19:15] VITALS: BP 122/65
[2018-01-20 05:20] VITALS: BP 131/79
[2018-01-20] MEDS: oxyCODONE/APAP 5/325 1 TAB TABLET PO PRN (05:37)
[2018-01-20 05:53] LABS: HEMATOCRIT 33.4 % (39.0-53.0); HEMOGLOBIN 11.9 g/dL (13.0-17.5)
[2018-01-20] MEDS: CHOLECALCIFEROL (VITAMIN D3) 5,000 UNIT CAPSULE PO SCH (07:47)
[2018-01-20] MEDS: ASPIRIN ENTERIC COATED 325 MG TABLET.DR. PO SCH ×2 (07:48→20:57)
[2018-01-20] MEDS: MELOXICAM 7.5 MG TABLET PO SCH (07:48)
[2018-01-20] MEDS: EXENATIDE 10 MCG SQ SCH ×2 (07:48→17:02)
[2018-01-20] MEDS: GLIMEPIRIDE 2 MG TABLET. PO SCH (07:49)
[2018-01-20] MEDS: SENNOSIDES/DOCUSATE 8.6/50MG TABLET. PO SCH (07:49)
[2018-01-20] MEDS: MULTIVITAMIN with MINERAL TABLET. PO SCH (07:49)
[2018-01-20] MEDS: FERROUS SULFATE 325 MG TABLET. PO SCH ×2 (08:00→17:01)
[2018-01-20] MEDS: hydroCHLOROthiazide 12.5 MG CAPSULE PO SCH (08:03)
[2018-01-20] MEDS: LISINOPRIL 10 MG TABLET PO SCH (08:05)
[2018-01-20] MEDS: INSULIN LISPRO 300 UNITS/3 ML INSULN.PEN. SQ SCH ×3 (08:07→17:08)
[2018-01-20] MEDS: oxyCODONE/APAP 7.5/325 1 TAB TABLET PO PRN (09:45)
[2018-01-20] MEDS: IV DEXTROSE 5 %-0.45 % NACL 1,000 ML IV SCH ×2 (11:09→21:05)
--- NOTE | 2018-01-20 12:48 | PDOC ---
PROGRESS NOTES Subjective Subjective Pain controlled. No major complaints. Objective Vital Signs Vital Signs Date Time Temp Pulse Resp B/P (MAP) Pulse Ox O2 Delivery O2 Flow Rate FiO2 01/20/18 09:45 Room Air 01/20/18 08:05 107 149/80 01/20/18 05:37 20 96 01/20/18 05:20 99.1 99.1 01/19/18 23:14 2.0 Physical Exam Postop dressing and pain catheter have been removed. SKYE intact. Spotty bloody drainage only. Calf soft and nontender. Good AROM of ankle. Minimal erythema/warmth. Labs Laboratory Tests Test 01/18/18 16:31 01/18/18 20:33 01/19/18 04:45 01/19/18 06:24 Glucose (Fingerstick) 268 mg/dL (70-99) 170 mg/dL (70-99) 169 mg/dL (70-99) Hemoglobin 12.6 g/dL (13.0-17.5) Hematocrit 36.0 % (39.0-53.0) Mean Corpuscular Hemoglobin Concent 35 g/dL (31-37) Test 01/19/18 11:44 01/19/18 16:45 01/19/18 20:28 01/20/18 04:58 Glucose (Fingerstick) 219 mg/dL (70-99) 211 mg/dL (70-99) 137 mg/dL (70-99) Hemoglobin 11.9 g/dL (13.0-17.5) Hematocrit 33.4 % (39.0-53.0) Mean Corpuscular Hemoglobin Concent 36 g/dL (31-37) Test 01/20/18 06:28 01/20/18 11:23 Glucose (Fingerstick) 347 mg/dL (70-99) 185 mg/dL (70-99) Laboratory Tests Test 01/19/18 16:45 01/19/18 20:28 01/20/18 04:58 01/20/18 06:28 Glucose (Fingerstick) 211 mg/dL (70-99) 137 mg/dL (70-99) 347 mg/dL (70-99) Hemoglobin 11.9 g/dL (13.0-17.5) Hematocrit 33.4 % (39.0-53.0) Mean Corpuscular Hemoglobin Concent 36 g/dL (31-37) Test 01/20/18 11:23 Glucose (Fingerstick) 185 mg/dL (70-99) Imaging Postoperative x-rays and report reviewed by me and show satisfactory alignment and no apparent complications. Assessment Assessment POD #2 TKA Plan Plan of Care Continue POC. Discharge planning for tomorrow. Aspirin 325 mg po BID and mobilization for DVT prophylaxis. MAGGIE WAHL MD Jan 20, 2018 12:48
[2018-01-20] MEDS: oxyCODONE/APAP 10/325 1 TAB TABLET PO PRN ×2 (12:59→19:08)
[2018-01-20 18:19] VITALS: BP 111/70
[2018-01-21 05:56] VITALS: BP 135/84
[2018-01-21] MEDS: CHOLECALCIFEROL (VITAMIN D3) 5,000 UNIT CAPSULE PO SCH (08:54)
[2018-01-21] MEDS: oxyCODONE/APAP 10/325 1 TAB TABLET PO PRN ×3 (08:55→14:45)
[2018-01-21] MEDS: GLIMEPIRIDE 2 MG TABLET. PO SCH (08:57)
[2018-01-21] MEDS: MELOXICAM 7.5 MG TABLET PO SCH (08:57)
[2018-01-21] MEDS: MULTIVITAMIN with MINERAL TABLET. PO SCH (08:58)
[2018-01-21] MEDS: FERROUS SULFATE 325 MG TABLET. PO SCH (08:58)
[2018-01-21] MEDS: hydroCHLOROthiazide 12.5 MG CAPSULE PO SCH (08:58)
[2018-01-21] MEDS: LISINOPRIL 10 MG TABLET PO SCH (08:59)
[2018-01-21] MEDS: SENNOSIDES/DOCUSATE 8.6/50MG TABLET. PO SCH (09:00)
[2018-01-21] MEDS: ASPIRIN ENTERIC COATED 325 MG TABLET.DR. PO SCH (09:00)
[2018-01-21 09:01] LABS: HEMATOCRIT 34.5 % (39.0-53.0); HEMOGLOBIN 12.1 g/dL (13.0-17.5)
[2018-01-21] MEDS: EXENATIDE 10 MCG SQ SCH (09:04)
[2018-01-21] MEDS: INSULIN LISPRO 300 UNITS/3 ML INSULN.PEN. SQ SCH ×2 (09:09→12:02)
[2018-01-21] MEDS ORDERED: ASPI325T11 PO (13:04)
--- NOTE | 2018-01-21 13:21 | PDOC ---
PROGRESS NOTES Subjective Subjective Pain controlled with Percocet . Planning on discharge today to home. Objective Vital Signs Vital Signs Date Time Temp Pulse Resp B/P (MAP) Pulse Ox O2 Delivery O2 Flow Rate FiO2 01/21/18 12:00 20 01/21/18 08:59 100 130/75 01/21/18 05:56 99.2 98 Room Air 99.2 01/19/18 23:14 2.0 Physical Exam SKYE intact and dry. Good AROM ankle. Calf soft and nontender. Minimal warmth or erythema. NVI. Labs Laboratory Tests Test 01/19/18 16:45 01/19/18 20:28 01/20/18 04:58 01/20/18 06:28 Glucose (Fingerstick) 211 mg/dL (70-99) 137 mg/dL (70-99) 347 mg/dL (70-99) Hemoglobin 11.9 g/dL (13.0-17.5) Hematocrit 33.4 % (39.0-53.0) Mean Corpuscular Hemoglobin Concent 36 g/dL (31-37) Test 01/20/18 11:23 01/20/18 16:39 01/20/18 20:54 01/21/18 06:41 Glucose (Fingerstick) 185 mg/dL (70-99) 183 mg/dL (70-99) 120 mg/dL (70-99) 283 mg/dL (70-99) Test 01/21/18 08:35 01/21/18 11:29 Hemoglobin 12.1 g/dL (13.0-17.5) Hematocrit 34.5 % (39.0-53.0) Mean Corpuscular Hemoglobin Concent 35 g/dL (31-37) Glucose (Fingerstick) 255 mg/dL (70-99) Laboratory Tests Test 01/20/18 16:39 01/20/18 20:54 01/21/18 06:41 01/21/18 08:35 Glucose (Fingerstick) 183 mg/dL (70-99) 120 mg/dL (70-99) 283 mg/dL (70-99) Hemoglobin 12.1 g/dL (13.0-17.5) Hematocrit 34.5 % (39.0-53.0) Mean Corpuscular Hemoglobin Concent 35 g/dL (31-37) Test 01/21/18 11:29 Glucose (Fingerstick) 255 mg/dL (70-99) Assessment Assessment POD #3 TKA Plan Plan of Care Discharge planning for today to home. Continue PT and DVT prophylaxis. F/U 10- 14 days in office. PRIYANKA OBANDO Jan 21, 2018 13:21
--- NOTE | 2018-01-21 13:21 | PDOC3 ---
Discharge Summary Visit Information Date of Admission: Jan 18, 2018 Date of Discharge: Jan 21, 2018 Admitting Diagnosis: left knee osteoarthritis pain Brief Hospital Course Allergies Allergies Coded Allergies Type Severity Reaction Last Updated Verified No Known Drug Allergies 01/18/18 No Vital Signs Vital Signs Date Time Temp Pulse Resp B/P (MAP) Pulse Ox O2 Delivery O2 Flow Rate FiO2 01/21/18 12:00 20 01/21/18 08:59 100 130/75 01/21/18 05:56 99.2 98 Room Air 99.2 01/19/18 23:14 2.0 Lab Results Laboratory Tests Test 01/19/18 16:45 01/19/18 20:28 01/20/18 04:58 01/20/18 06:28 Glucose (Fingerstick) 211 mg/dL (70-99) 137 mg/dL (70-99) 347 mg/dL (70-99) Hemoglobin 11.9 g/dL (13.0-17.5) Hematocrit 33.4 % (39.0-53.0) Mean Corpuscular Hemoglobin Concent 36 g/dL (31-37) Test 01/20/18 11:23 01/20/18 16:39 01/20/18 20:54 01/21/18 06:41 Glucose (Fingerstick) 185 mg/dL (70-99) 183 mg/dL (70-99) 120 mg/dL (70-99) 283 mg/dL (70-99) Test 01/21/18 08:35 01/21/18 11:29 Hemoglobin 12.1 g/dL (13.0-17.5) Hematocrit 34.5 % (39.0-53.0) Mean Corpuscular Hemoglobin Concent 35 g/dL (31-37) Glucose (Fingerstick) 255 mg/dL (70-99) Laboratory Tests Test 01/20/18 16:39 01/20/18 20:54 01/21/18 06:41 01/21/18 08:35 Glucose (Fingerstick) 183 mg/dL (70-99) 120 mg/dL (70-99) 283 mg/dL (70-99) Hemoglobin 12.1 g/dL (13.0-17.5) Hematocrit 34.5 % (39.0-53.0) Mean Corpuscular Hemoglobin Concent 35 g/dL (31-37) Test 01/21/18 11:29 Glucose (Fingerstick) 255 mg/dL (70-99) Brief Hospital Course 57 year old male who presented with knee osteoarthritis, for elective total knee arthroplasty. The patient underwent total knee arthroplasty under general anesthesia the day of admission. Perioperative antibiotics and DVT prophylaxis were used. Postoperatively physical therapy and case management were consulted. The patient progressed and is stable for discharge. Discharge Information Condition at Discharge: Stable Follow Up: Weeks (2) Disposition/Orders: D/C to Home Scheduled Aspirin (Aspirin Ec), 1 TAB PO BID, (Reported) Cholecalciferol (Vitamin D3) (Vitamin D), 125 MG PO DAILY, (Reported) Exenatide (Byetta), 10 MCG SQ BIDAC, (Reported) Ferrous Sulfate (Ferrous Sulfate), 325 MG PO DAILY, (Reported) Glimepiride (Glimepiride), 1 TAB PO DAILY, (Reported) Lisinopril/Hydrochlorothiazide (Lisinopril-Hctz 20-25 Mg Tab), 0.5 TAB PO DAILY, (Reported) Meloxicam (Meloxicam), 1 TAB PO DAILY, (Reported) Metformin Hcl (Metformin Hcl), 1,000 MG PO BID, (Reported) Multivitamin With Minerals (Multiple Vitamin), 1 EACH PO DAILY, (Reported) Scheduled PRN Hydrocodone Bit/Acetaminophen (Hydrocodone-Apap 5-325 ), 1 TAB PO PRN Q6HRS PRN for PAIN, (Reported) Patient Instructions Patient Instructions Patient Instructions Continue to WBAT with walker. Keep dressing dry and intact. F/U with [facility] in 10-14 days. Call for appointment. Physical therapy for TKA Continue DVT prophylaxis. PRIYANKA OBANDO Jan 21, 2018 13:21
[2018-01-21] MEDS ORDERED: OXYC-328 PO (13:51)
[2018-01-21] MEDS ORDERED: FERR325T14 PO (13:52)
[2018-01-21 15:10] VITALS: BP 124/63
--- NOTE | 2018-01-25 09:06 | PATHOLOGY ---
[facility] Accession Number: [id number] . 01 Material submitted: . LEFT KNEE TISSUE . 01 Clinical history: . Osteoarthritis . 02 Diagnosis: Segments of bone and soft tissue, left total knee arthroplasty: - Advanced degenerative arthritis. (JPM:marko; 01/21/2018) QMS/01/21/2018 . 02 Electronically signed: . Tito Limon MD, Pathologist NPI- [id number] . 01 Gross description: . The specimen is received in formalin, labeled "Cas Sampson and left knee tissue", are multiple segments of lezama-yellow bone with recognizable tibia plateau, patella, meniscus and attached haider-white fibrous soft tissue measuring 16.5 x 10.0 x 2.5 cm in aggregate. Several fragments have eburnated areas with the remaining articular cartilage lezama-yellow and smooth. Peripheral osteophytes are present. Echo Technologist sections are submitted in A1 after decalcification. ([facility]; 01/19/2018) SHS/SHS . 02 Pathologist provided ICD-10: M17.12 . 02 CPT . 702311, [id number] Performed at: 01 [facility] [address], [place] [id number] MD Jamaal Leach MD Phone: [phone] Performed at: 02 [facility] [address], [place] [id number] MD Tito Limon MD Phone: [phone]
== END 2018-01-21 15:45 | disposition home or self-care (01) | DRG 470 ==
LOC: OPSVCIP 01-18 05:33 → 4 SOUTHEST 01-18 11:00
PROVIDERS: ADMIT Orthopaedic Surgery; ATTEND Orthopaedic Surgery
PROC: 0SRD069 Replacement of Left Knee Joint with Oxidized Zirconium on Polyethylene Synthetic Substitute, Cemented, Open Approach (ICD-10-PCS; principal; 2018-01-18 07:10)
DX: M17.12 Unilateral primary osteoarthritis, left knee (principal); E11.9 Type 2 diabetes mellitus without complications; I10 Essential (primary) hypertension; Z82.49 Family history of ischemic heart disease and other diseases of the circulatory system; Z79.84 Long term (current) use of oral hypoglycemic drugs; Z79.899 Other long term (current) drug therapy
CPT/HCPCS: 36415; 73560; 82962; 85014; 85018; 86850; 86900; 86901; A7015; C1713; J0171; J0690; J1100; J1170; J1815; J1885; J2250; J2270; J2405; J2704; J2795; J3010; J3260; J3370; J3490; J7030; J7120; 97116; 97150; 97530; 97535; A4461; C1769

== ENCOUNTER → 2018-01-03 | Outpatient (CLI) | payer OTHER ==
[~2018-01-03] MED LIST changes: +CHOL100013 PO; +EXEN10PE3 SQ; +FERR325T14 PO; +HYDR-2758 PO; +METF10003 PO; -METF10007 PO; +MULT-460 PO
[2018-01-03 09:49] LABS: ALBUMIN 4.3 g/dL (3.4-5.0); CALCIUM 9.4 mg/dL (8.5-10.1); CREATININE 0.9 mg/dL (0.7-1.3); POTASSIUM 4.3 mmol/L (3.5-5.1)
[2018-01-03 10:01] LABS: BASO % 1 % (0-3); EOS # 0.1 x10^3/uL (0.0-0.7); EOS % 2 % (0-3); HEMATOCRIT 47.8 % (39.0-53.0); HEMOGLOBIN 16.6 g/dL (13.0-17.5); LYMPH # 1.7 x10^3/uL (1.0-4.8); LYMPH % 21 % (24-48); MEAN CORPUSCULAR HEMOGLOBIN 32 pg (25-35); MEAN CORPUSCULAR HGB CONC 35 g/dL (31-37); MEAN CORPUSCULAR VOLUME 93 fL (79-100); MONO # 0.6 x10^3/uL (0.0-1.1); MONO % 8 % (0-9); NEUT # 5.7 x10^3uL (1.8-7.7); NEUT % 70 % (31-73); PLATELET COUNT 202 x10^3/uL (140-400); RED BLOOD COUNT 5.17 x10^6/uL (4.30-5.70); RED CELL DISTRIBUTION WIDTH 13.3 % (11.5-14.5); WHITE BLOOD COUNT 8.2 x10^3/uL (4.0-11.0)
[2018-01-03 10:09] LABS: PROTHROMBIN TIME PATIENT 12.9 SEC (11.7-14.0)
[2018-01-03 10:14] LABS: BILIRUBIN,URINE NEGATIVE (NEG); CLARITY,URINE CLEAR; COLOR,URINE YELLOW; NITRITE,URINE NEGATIVE (NEG); PH,URINE 5.5; PROTEIN,URINE NEGATIVE (NEG-TRACE); UROBILINOGEN,URINE 0.2 mg/dL (0.2 mg/dL)
[2018-01-03 10:36] LABS: RBC,URINE OCC /HPF (0-2)
[2018-01-03 10:37] LABS: BACTERIA,URINE 0 /HPF (0-FEW); SQUAMOUS EPITHELIAL CELL,UR FEW /LPF; WBC,URINE OCC /HPF (0-4)
--- NOTE | 2018-01-03 12:51 | EKG ---
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
--- NOTE | 2018-01-03 16:26 | RAD ---
EXAM: PA and lateral views of the chest DATE: 01/03/2018 8:59 AM INDICATION: joint prehab class-preop eval for joint replacement-hx diabetes COMPARISON: No Prior FINDINGS: The heart is not enlarged. Mediastinal and hilar contours are normal. No focal parenchymal airspace opacity. No pleural effusion or pneumothorax. IMPRESSION: 1. No radiographic evidence for acute cardiopulmonary process. Electronically signed by: Matthew Mckeon MD (01/03/2018 4:22 PM) [facility]
[2018-01-04 01:17] LABS: HEMOGLOBIN A1C 5.9 % (4.8-5.6)
== END | disposition home or self-care (01) ==
LOC: SURGPAT 12:47
PROVIDERS: ATTEND Orthopaedic Surgery
DX: E11.9 Type 2 diabetes mellitus without complications (principal); I10 Essential (primary) hypertension; Z79.899 Other long term (current) drug therapy
CPT/HCPCS: 36415; 71046; 80048; 81001; 82040; 82306; 83036; 85025; 85610; 85651; 85730; 87641; 93005

== ENCOUNTER 2018-01-31 09:48 | Emergency (ER) | payer OTHER ==
[~2018-01-31] VITALS: Ht 185.4 cm; Wt 117.9 kg
[~2018-01-31 09:48] MED LIST changes: +ASPI325T11 PO; -METF10003 PO; +METF10007 PO; +OXYC-328 PO
[2018-01-31] MEDS ORDERED: CONTRAST GIVEN. MC PRN (10:30)
[2018-01-31] MEDS ORDERED: IOHEXOL 300 MG/ML 100ML VIAL. IV ONE (10:30)
[2018-01-31 10:49] LABS: BASO # 0.1 x10^3/uL (0.0-0.2); BASO % 1 % (0-3); EOS # 0.1 x10^3/uL (0.0-0.7); EOS % 1 % (0-3); HEMATOCRIT 33.4 % (39.0-53.0); HEMOGLOBIN 11.7 g/dL (13.0-17.5); LYMPH % 9 % (24-48); MEAN CORPUSCULAR HEMOGLOBIN 32 pg (25-35); MEAN CORPUSCULAR HGB CONC 35 g/dL (31-37); MEAN CORPUSCULAR VOLUME 91 fL (79-100); MONO # 0.7 x10^3/uL (0.0-1.1); MONO % 6 % (0-9); NEUT # 9.6 x10^3uL (1.8-7.7); NEUT % 83 % (31-73); PLATELET COUNT 392 x10^3/uL (140-400); RED BLOOD COUNT 3.66 x10^6/uL (4.30-5.70); RED CELL DISTRIBUTION WIDTH 13.6 % (11.5-14.5); WHITE BLOOD COUNT 11.5 x10^3/uL (4.0-11.0)
--- NOTE | 2018-01-31 10:51 | PHYS DOC ---
Past Medical History Past Medical History: Diabetes-Type I, Hypertension Past Surgical History: Knee Replacement, Tonsillectomy Additional Past Surgical Histo: L total knee Alcohol Use: None Drug Use: None Adult General Chief Complaint Chief Complaint: POST-OP PROBLEM HPI HPI Patient is a 57 year old male with history of diabetes, hypertension, who presents today for CT of the chest to rule out PE. Patient had left total knee replacement done 2 weeks ago. He states since the knee replacement surgery he has had shortness of breath especially on exertion as well as diaphoresis. He states he saw his orthopedic doctor a few minutes ago and was sent to the ED to get a CT of the chest to make sure he does not have a blood clot in the chest. He was started on aspirin 325 mg today. Denies any chest pain. Review of Systems Review of Systems Constitutional: Denies fever or chills [] Eyes: Denies change in visual acuity, redness, or eye pain [] HENT: Denies nasal congestion or sore throat [] Respiratory: Reports shortness of breath. Denies cough Cardiovascular: No additional information not addressed in HPI [] GI: Denies abdominal pain, nausea, vomiting, bloody stools or diarrhea [] : Denies dysuria or hematuria [] Musculoskeletal: Denies back pain or joint pain [] Integument: Denies rash or skin lesions [] Neurologic: Denies headache, focal weakness or sensory changes [] All other systems were reviewed and found to be within normal limits, except as documented in this note. Current Medications Current Medications Current Medications Medications (Trade) Dose Ordered Sig/Adarsh Start Time Stop Time Status Last Admin Dose Admin Info (CONTRAST GIVEN -- Rx MONITORING) 1 each PRN DAILY PRN 01/31/18 10:30 01/31/18 14:21 DC Iohexol (Omnipaque 300 Mg/ml) 75 ml 1X ONCE 01/31/18 10:30 01/31/18 10:31 DC 01/31/18 10:30 75 ML Allergies Allergies Allergies Coded Allergies Type Severity Reaction Last Updated Verified No Known Drug Allergies 01/18/18 No Physical Exam Physical Exam Constitutional: Well developed, well nourished, no acute distress, non-toxic appearance. [] HENT: Normocephalic, atraumatic, bilateral external ears normal, oropharynx moist, no oral exudates, nose normal. [] Eyes: PERRLA, EOMI, conjunctiva normal, no discharge. [] Neck: Normal range of motion, no tenderness, supple, no stridor. [] Cardiovascular:Heart rate regular rhythm, no murmur [] Lungs & Thorax: Bilateral breath sounds clear to auscultation [] Abdomen: Bowel sounds normal, soft, no tenderness, no masses, no pulsatile masses. [] Skin: Warm, dry, no erythema, no rash. [] Back: No tenderness, no CVA tenderness. [] Extremities: Left knee with a well approximated surgical incision with Steri- Strips over the incision site, no redness over the incision site, no warmth over the incision site, patient able to flex and extend the knee, no cyanosis, no clubbing, ROM intact, no edema. [] Neurologic: Alert and oriented X 3, normal motor function, normal sensory function, no focal deficits noted. [] Psychologic: Affect normal, judgement normal, mood normal. [] Current Patient Data Vital Signs Vital Signs Date Time Temp Pulse Resp B/P (MAP) Pulse Ox O2 Delivery O2 Flow Rate FiO2 01/31/18 14:00 92 20 143/72 (95) 98 Room Air 01/31/18 10:05 98.4 98.4 Lab Values Laboratory Tests Test 01/31/18 10:35 White Blood Count 11.5 x10^3/uL (4.0-11.0) H Red Blood Count 3.66 x10^6/uL (4.30-5.70) L Hemoglobin 11.7 g/dL (13.0-17.5) L Hematocrit 33.4 % (39.0-53.0) L Mean Corpuscular Volume 91 fL (79-100) Mean Corpuscular Hemoglobin 32 pg (25-35) Mean Corpuscular Hemoglobin Concent 35 g/dL (31-37) Red Cell Distribution Width 13.6 % (11.5-14.5) Platelet Count 392 x10^3/uL (140-400) Neutrophils (%) (Auto) 83 % (31-73) H Lymphocytes (%) (Auto) 9 % (24-48) L Monocytes (%) (Auto) 6 % (0-9) Eosinophils (%) (Auto) 1 % (0-3) Basophils (%) (Auto) 1 % (0-3) Neutrophils # (Auto) 9.6 x10^3uL (1.8-7.7) H Lymphocytes # (Auto) 1.0 x10^3/uL (1.0-4.8) Monocytes # (Auto) 0.7 x10^3/uL (0.0-1.1) Eosinophils # (Auto) 0.1 x10^3/uL (0.0-0.7) Basophils # (Auto) 0.1 x10^3/uL (0.0-0.2) Sodium Level 135 mmol/L (136-145) L Potassium Level 3.9 mmol/L (3.5-5.1) Chloride Level 99 mmol/L (98-107) Carbon Dioxide Level 25 mmol/L (21-32) Anion Gap 11 (6-14) Blood Urea Nitrogen 19 mg/dL (8-26) Creatinine 1.0 mg/dL (0.7-1.3) Estimated GFR (Cockcroft-Gault) 77.0 Glucose Level 257 mg/dL (70-99) H Calcium Level 9.6 mg/dL (8.5-10.1) Magnesium Level 1.7 mg/dL (1.8-2.4) L Creatine Kinase 57 U/L (39-308) Creatine Kinase MB (Mass) < 0.5 ng/mL (0.0-3.6) Creatine Kinase MB Relative Index % (0-4) Troponin I Quantitative < 0.017 ng/mL (0.000-0.055) LF-Pdn-Q-Type Natriuretic Peptide 39 pg/mL (0-124) Thyroid Stimulating Hormone (TSH) 1.080 uIU/mL (0.358-3.74) Laboratory Tests 01/31/18 10:35 Laboratory Tests 01/31/18 10:35 EKG EKG 10:[address] Reyes sinus tachycardia HR 101 no STEMI Radiology/Procedures Radiology/Procedures []PROCEDURE: CT ANGIOGRAPHY CHEST Examination: CT angiography chest HISTORY: History of shortness of breath COMPARISON: None available TECHNIQUE: Axial CT angiographic images of chest were performed with IV contrast coronal sagittal reformats are performed. Exposure: One or more of the following individualized dose reduction techniques were utilized for this examination: 1. Automated exposure control 2. Adjustment of the mA and/or kV according to patient size 3. Use of iterative reconstruction technique FINDINGS: The visualized thyroid gland grossly appears unremarkable. Central airways are patent. The caliber of the aorta grossly appears unremarkable. There is no evidence of filling defect identified in the main pulmonary arterial trunk and right and left main pulmonary arteries. No evidence of filling defect identified in the visualized lobar, segmental branches of the pulmonary arteries. Evaluation somewhat limited as there is only minimal contrast within the pulmonary artery and its branches. Small thin-walled cyst identified in the right lung base. Mild coronary artery calcifications. Minimal bibasilar lung atelectasis. There is diffuse decreased attenuation noted throughout the liver likely hepatic steatosis. The visualized spleen, right adrenal grossly appears unremarkable. There is a small nodule identified in the left adrenal gland measuring 7 mm is difficult to characterize. Mild degenerative changes thoracic spine. IMPRESSION: 1. No evidence of pulmonary embolism. Examination somewhat limited as there is only minimal amount of contrast in the pulmonary arteries and its branches. However grossly no evidence of pulmonary embolism identified. 2. Mild bibasilar lung atelectasis or infiltrates. 2. Coronary artery calcifications. 4. Hepatic steatosis. Electronically signed by: Darren Lott MD (01/31/2018 12:38 PM) [id number] DICTATED and SIGNED BY: DARREN LOTT MD DATE: 01/31/18 1230 Course & Med Decision Making Course & Med Decision Making Pertinent Labs and Imaging studies reviewed. (See chart for details) This is a 57-year-old male patient presenting to the ED today from the orthopedic doctor's office to be worked up for possible PE. Patient had left knee replacement 2 weeks ago and has been noted to be diaphoretic and short of air on exertion. Patient denies any fever. Denies any chest pain or shortness of breath. On arrival to the ED patient appeared short of air on exertion. Vitals were blood pressure 160/116, heart rate 108, temperature 98.4 O2 sats 100% on room air, 20 respiration on room air. CT chest is negative for PE. Patient noted for possible infiltrate or atelectasis, with the elevated WBC there is a chance patient has pneumonia. Patient be discharged on doxycycline. Encouraged to consider following up with his own doctor. I spoke with Paola Lawrence's nurse and gave her results to pass to Dr. Lawrence. [facility] went down prior to discharge. Discharge paperwork done on paper. Staff Physician Addendum: I was working in the ER during the course of this patient's visit. I was available for consultation as needed, but I was not directly involved in the care of this patient. Dragon Disclaimer Dragon Disclaimer This electronic medical record was generated, in whole or in part, using a voice recognition dictation system. Departure Departure Impression: Primary Impression: Lung infiltrate Disposition: HOME, SELF-CARE Condition: STABLE Referrals: LISSETH MARIO MD (PCP) CHRIS HINES APRN Jan 31, 2018 10:51 CASH REYES MD Feb 03, 2018 01:46
--- NOTE | 2018-01-31 10:53 | EKG ---
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
[2018-01-31 11:07] LABS: CALCIUM 9.6 mg/dL (8.5-10.1); MAGNESIUM 1.7 mg/dL (1.8-2.4); POTASSIUM 3.9 mmol/L (3.5-5.1)
[2018-01-31 11:21] LABS: CREATINE KINASE 57 U/L (39-308)
--- NOTE | 2018-01-31 12:41 | RAD ---
Examination: CT angiography chest HISTORY: History of shortness of breath COMPARISON: None available TECHNIQUE: Axial CT angiographic images of chest were performed with IV contrast coronal sagittal reformats are performed. Exposure: One or more of the following individualized dose reduction techniques were utilized for this examination: 1. Automated exposure control 2. Adjustment of the mA and/or kV according to patient size 3. Use of iterative reconstruction technique FINDINGS: The visualized thyroid gland grossly appears unremarkable. Central airways are patent. The caliber of the aorta grossly appears unremarkable. There is no evidence of filling defect identified in the main pulmonary arterial trunk and right and left main pulmonary arteries. No evidence of filling defect identified in the visualized lobar, segmental branches of the pulmonary arteries. Evaluation somewhat limited as there is only minimal contrast within the pulmonary artery and its branches. Small thin-walled cyst identified in the right lung base. Mild coronary artery calcifications. Minimal bibasilar lung atelectasis. There is diffuse decreased attenuation noted throughout the liver likely hepatic steatosis. The visualized spleen, right adrenal grossly appears unremarkable. There is a small nodule identified in the left adrenal gland measuring 7 mm is difficult to characterize. Mild degenerative changes thoracic spine. IMPRESSION: 1. No evidence of pulmonary embolism. Examination somewhat limited as there is only minimal amount of contrast in the pulmonary arteries and its branches. However grossly no evidence of pulmonary embolism identified. 2. Mild bibasilar lung atelectasis or infiltrates. 2. Coronary artery calcifications. 4. Hepatic steatosis. Electronically signed by: Darren Lott MD (01/31/2018 12:38 PM) [id number]
[2018-01-31 14:00] VITALS: BP 143/72
== END 2018-01-31 14:05 | disposition home or self-care (01) ==
LOC: ER 09:48
DX: R91.8 Other nonspecific abnormal finding of lung field (principal); E10.8 Type 1 diabetes mellitus with unspecified complications; I10 Essential (primary) hypertension
CPT/HCPCS: 36415; 71275; 80048; 82553; 83735; 83880; 84443; 84484; 85025; 93005; 99285; Q9967

== ENCOUNTER 2018-03-15 13:29 | Day surgery (SDC) | payer OTHER ==
--- NOTE | 2018-03-14 13:59 | PDOC1 ---
History and Physical Date of Admission Date of Admission DATE: 03/15/18 Identification/Chief Complaint Chief Complaint left knee contracture Source Source: Chart review History of Present Illness History of Present Illness The patient is a 57 y/o male 2 months status post left total knee arthroplasty on 01.18.2018. He states he is not progressing in formal physical therapy, and his range of motion has worsened. He has developed a left knee contracture. He is beginning to feel discouraged as he is not seeing improvement. He would like to do a manipulation to improve range of motion. Past Medical History Cardiovascular: HTN Endocrine: Diabetes Past Surgical History Past Surgical History: Total knee replacement (left - 01/18/18), No pertinent history Family History Family History: Hypertension Social History Smoke: Quit (2005) ALCOHOL: none Drugs: None Current Medications Current Medications Active Scripts Active Reported Percocet 10-325 Mg Tablet (Oxycodone/Acetaminophen) 1 Each Tablet 1-2 Tab PO Q4- 6HRS Aspirin Ec (Aspirin) 325 Mg Tablet.dr 1 Tab PO BID 30 Days Vitamin D (Cholecalciferol (Vitamin D3)) 1,000 Unit Capsule 125 Mg PO DAILY Multiple Vitamin (Multivitamin With Minerals) 1 Each Tablet 1 Each PO DAILY Ferrous Sulfate 325 Mg Tablet 325 Mg PO DAILY [place]etta (Exenatide) 10 Mcg/0.04 Ml Pen.injctr 10 Mcg SQ BIDAC Lisinopril-Hctz 20-25 Mg Tab (Lisinopril/Hydrochlorothiazide) 1 Each Tablet 0.5 Tab PO DAILY Glimepiride 4 Mg Tablet 1 Tab PO DAILY Metformin Hcl 1,000 Mg Tablet 1,000 Mg PO BID Meloxicam 15 Mg Tablet 1 Tab PO DAILY Allergies Allergies: Coded Allergies: No Known Drug Allergies (Unverified , 03/14/18) Physical Exam General: Alert, Oriented X3, Cooperative, No acute distress HEENT: Atraumatic, EOMI Lungs: Normal air movement Heart: RRR Abdomen: Soft Extremities: No clubbing, No cyanosis, Normal pulses, Other (The left total knee incision is well healed, without drainage or erythema. The knee shows active motion from 5-72 degrees. The calf is soft and nontender, with a negative Negin's sign. Good plantarflexion and dorsiflexion. Slight warmth and swelling consistent with recent surgery. There is no evidence of infection, DVT , or neurovascular injury.) Skin: No rashes, No breakdown, No significant lesion Neuro: Normal speech, Sensation intact Psych/Mental Status: Mental status NL, Mood NL VTE Prophylaxis Ordered VTE Prophylaxis Devices: Yes VTE Pharmacological Prophylaxi: Yes Assessment/Plan Assessment/Plan Left knee contracture s/p left TKA. Dr. Lawrence and the patient discussed a manipulation and knee aspiration under anesthesia as he is still has very limited range of motion and it is not improving with time. We discussed risks of this procedure such as holden- prosthetic fracture. We also discussed the risk of undergoing anesthesia. He will return to formal physical therapy the following day. He will begin Medrol dose pack following the manipulation to reduce swelling and allow his range of motion to continue to improve. He will remain off work. Follow up with me 10-14 days after manipulation. PRIYANKA OBANDO Mar 14, 2018 13:59
[~2018-03-15] VITALS: Ht 182.9 cm; Wt 126.1 kg
[~2018-03-15 13:29] MED LIST changes: +HYDROmorphone 2 MG/ML VIAL IV PRN; +IV RINGERS,LACTATED 1000ML 1,000 ML IV SCH; +LIDOCAINE 1% PF 2 ML VIAL. ID PRN; +ONDANSETRON PF 4 MG/2 ML VIAL. IV PRN; +PROCHLORPERAZINE 10 MG/2 ML VIAL. IV PRN; +fentaNYL PF VIAL 100 MCG/2 ML VIAL IV PRN
[2018-03-15] MEDS ORDERED: fentaNYL PF VIAL 100 MCG/2 ML VIAL ONE (15:09)
[2018-03-15] MEDS ORDERED: PROPOFOL 20 ML IV ONE ×2 (15:09→16:31)
[2018-03-15] MEDS ORDERED: SUCCINYLCHOLINE 200 MG/10 ML VIAL. ONE (16:21)
[2018-03-15] MEDS ORDERED: ONDANSETRON PF 4 MG/2 ML VIAL. ONE (16:31)
[2018-03-15] MEDS ORDERED: DEXAMETHASONE SOD PHOS 20 MG/5 ML VIAL. ONE (16:31)
[2018-03-15] MEDS ORDERED: SEVOFLURANE UP TO 15 MINUTES. IH ONE (16:32)
[2018-03-15] MEDS: MORPHINE SULFATE 2 MG/ML VIAL. IV PRN ×2 (16:40→17:04)
[2018-03-15] MEDS: fentaNYL PF VIAL 100 MCG/2 ML VIAL IV PRN ×2 (16:50→17:03)
[2018-03-15] MEDS ORDERED: predniSONE 20 MG TABLET PO ONE (17:00)
--- NOTE | 2018-03-15 17:06 | PDOC4 ---
Operative Note Operative Note Date of Procedure: March 15, 2018 Pre-Op Diagnosis: contracture left knee joint, status post left knee arthroplasty Post-Op Diagnosis: same Procedure: left knee manipulation under anesthesia Surgeon: Maggie Lawrence MD Bundle Sorter: Rae Ramirez PA-C Anesthesia: General EBL: none Specimens Obtained: left knee joint aspirate for cell count, differential, and cultures: aerobic, anaerobic, fungal and AFB Complications: none Drains: none Findings: no effusion. Knee contracture. Indications for Procedure: The patient is a 57 -year-old man who had total knee arthroplasty nearly 3 months ago. Over the last few weeks his motion has decreased, and he is having increasing pain. His flexion in the office was only to 70 degrees, and I recommended a manipulation under anesthesia in the operating room. I also recommended that we aspirate the knee to make sure that there is no infection. The patient and I discussed the risks, benefits and alternatives of surgery. I discussed with him the risk of manipulation is to cause a fracture that requires surgery, and other risks include persistent stiffness. All of his questions about surgery were answered and he desired to proceed. Procedure in Detail: The patient was identified in the preoperative holding area. The correct left lower extremity was marked by me. The patient was taken to the operating room where general anesthesia was used. The patient was positioned supine on the operating table. Preoperative antibiotics were not given. A timeout procedure was performed. The lateral aspect of the knee joint was prepared in sterile fashion with ChloraPrep solution. Used sterile gloves, and sterile technique, with a 16- gauge needle and aspirated the knee joint. I was only able to retrieve a few drops of bloody fluid, and there is no evidence of knee effusion. I sent this fluid in a green top tube for cell count with differential, and also a few of the remaining drops in a specimen cup for cultures. I then performed a manipulation. With the patient under deep anesthesia the knee was flexed to 120. There was a small amount of audible loosening of the adhesions. The knee was extended fully, again with a few audible releases. There was no evidence of fracture or complication. The patient was allowed to awaken taken to the recovery room in stable condition. MAGGIE LAWRENCE MD Mar 15, 2018 17:06
[2018-03-15 17:08] LABS: BF COLOR RED; BF SOURCE SYNOVIAL
[2018-03-15 17:09] LABS: BF CLARITY TURBID
[2018-03-15 17:10] LABS: BF MON % 50 %; BF PMN % 50 %
[2018-03-15] MEDS ORDERED: oxyCODONE/APAP 5/325 1 TAB TABLET PO ONE (17:15)
[2018-03-15 17:26] VITALS: BP 173/86
[2018-03-15] MEDS ORDERED: MORPHINE SULFATE 2 MG/ML VIAL. IV ONE (17:45)
== END 2018-03-15 17:55 | disposition home or self-care (01) ==
LOC: SURG 13:29
PROVIDERS: ATTEND Orthopaedic Surgery
DX: M24.562 Contracture, left knee (principal); I10 Essential (primary) hypertension; E11.9 Type 2 diabetes mellitus without complications; Z96.652 Presence of left artificial knee joint; Z82.49 Family history of ischemic heart disease and other diseases of the circulatory system; Z87.891 Personal history of nicotine dependence; Z79.82 Long term (current) use of aspirin; Z79.899 Other long term (current) drug therapy; Z79.84 Long term (current) use of oral hypoglycemic drugs
CPT/HCPCS: 27570; 82962; 87071; 87075; 87102; 87116; 89050; A7015; J0690; J0780; J1100; J2270; J2405; J2704; J3010; J7512; J0330; A4461

== ENCOUNTER → 2018-09-29 | Outpatient (CLI) | payer OTHER ==
[~2018-09-29] MED LIST changes: -HYDR-2758 PO; +HYDR-2761 PO; +HYDR-3164 PO; -HYDR-971 PO; -HYDROmorphone 2 MG/ML VIAL IV PRN; -IV RINGERS,LACTATED 1000ML 1,000 ML IV SCH; -LIDOCAINE 1% PF 2 ML VIAL. ID PRN; -ONDANSETRON PF 4 MG/2 ML VIAL. IV PRN; -OXYC-328 PO; +OXYC1TAB22 PO; -PROCHLORPERAZINE 10 MG/2 ML VIAL. IV PRN; -fentaNYL PF VIAL 100 MCG/2 ML VIAL IV PRN
== END | disposition home or self-care (01) ==
LOC: LAB 11:08
PROVIDERS: ATTEND Orthopaedic Surgery
DX: Z96.652 Presence of left artificial knee joint (principal)
CPT/HCPCS: 36415; 85651; 86140

== ENCOUNTER 2019-05-21 15:51 | Emergency (ER) | payer OTHER ==
[~2019-05-21] VITALS: Ht 182.9 cm; Wt 127.0 kg
[~2019-05-21 15:51] MED LIST changes: -GLIM4TAB2 PO; +GLIM4TAB8 PO; +LISI1TAB20 PO; -LISI1TAB7 PO
[2019-05-21] MEDS ORDERED: ORPH100T PO (16:25)
[2019-05-21] MEDS ORDERED: OXYC1TAB15 PO (16:25)
[2019-05-21] MEDS ORDERED: LIDO1ADH63 TP (16:25)
[2019-05-21] MEDS ORDERED: NAPR-695 PO (16:25)
--- NOTE | 2019-05-21 16:25 | PHYS DOC ---
Past Medical History Past Medical History: Diabetes-Type I, Diabetes-Type II, Hypertension Past Surgical History: Knee Replacement, Tonsillectomy Additional Past Surgical Histo: L total knee Smoking: Quit Greater Than 1 Year Alcohol Use: None Drug Use: None Adult General Chief Complaint Chief Complaint: LOWER BACK PAIN OR INJURY HPI HPI Patient is a 58-year-old male with past medical history of diabetes and hypert ension presented to the emergency department with chief complaint of back pain. Patient states that 3 days ago he was playing with his grandson picked him up and twisted while still sitting in a recliner and subsequently developed dull back pain. He is presenting to department today because at work he developed sharp back pain and numbness and tingling that radiated down his right leg. Patient has a history of chronic back pain. Patient denies saddle anesthesia, loss of bowel or bladder function. Patient denies any alleviating or aggravating factors. Patient states that he took 2 oxycodone at home last night no relief. Patient denies shortness breath, chest pain, fever, chills, abdominal pain, constipation, and diarrhea. Patient denies any other trauma. Review of Systems Review of Systems Constitutional: Denies fever or chills Eyes: Denies redness or eye pain HENT: Denies nasal congestion or sore throat Respiratory: Denies cough or shortness of breath Cardiovascular: Denies chest pain or palpitations GI: Denies abdominal pain, nausea, or vomiting : Denies dysuria or hematuria Musculoskeletal: Denies joint pain, reports back pain Integument: Denies rash or skin lesions Neurologic: Denies headache, reports numbness and tingling; denies loss of bowel or bladder Complete systems were reviewed and found to be within normal limits, except as documented in this note. Current Medications Current Medications Current Medications Medications (Trade) Dose Ordered Sig/Adarsh Start Time Stop Time Status Last Admin Dose Admin Dexamethasone (Decadron) 10 mg 1X ONCE 05/21/19 16:30 05/21/19 16:31 DC 05/21/19 16:29 10 MG Ketorolac Tromethamine (Toradol 30mg Vial) 30 mg 1X ONCE 05/21/19 16:30 05/21/19 16:31 DC 05/21/19 16:29 30 MG Lidocaine (Lidoderm) 1 patch 1X ONCE 05/21/19 16:30 05/21/19 16:31 DC 12/29/19 16:30 1 PATCH Morphine Sulfate (Morphine Sulfate) 8 mg 1X ONCE 05/21/19 16:30 05/21/19 16:31 DC 05/21/19 16:29 8 MG Orphenadrine Citrate (Norflex) 60 mg 1X ONCE 05/21/19 16:30 05/21/19 16:31 DC 05/21/19 16:30 60 MG Allergies Allergies Allergies Coded Allergies Type Severity Reaction Last Updated Verified No Known Drug Allergies 03/15/18 No Physical Exam Physical Exam Constitutional: Well developed, well nourished, no acute distress, non-toxic appearance HENT: Normocephalic, atraumatic, oropharynx moist Eyes: Conjunctiva normal, no discharge Neck: Normal range of motion, no tenderness, supple Cardiovascular: Heart rate normal, regular rhythm Lungs & Thorax: Bilateral breath sounds clear to auscultation, no wheezing Abdomen: Soft, no tenderness Skin: Warm, dry, no erythema, no rash Back: No midline tenderness, no CVA tenderness, paraspinal tenderness of the denzel mbar spine bilateral, increased range of motion due to pain Extremities: No tenderness, ROM intact, right DP and PT +2 pulses, distal sensation intact Neurologic: Alert and oriented X 3, normal motor function, normal sensory function, numbness and tingling down the right leg Psychologic: Affect normal, judgement normal Current Patient Data Vital Signs Vital Signs Date Time Temp Pulse Resp B/P (MAP) Pulse Ox O2 Delivery O2 Flow Rate FiO2 05/21/19 16:29 20 05/21/19 15:58 98.3 106 152/108 (123) 94 Room Air 98.3 EKG EKG [] Radiology/Procedures Radiology/Procedures [] Course & Med Decision Making Course & Med Decision Making Patient is a 58-year-old male with past medical history of diabetes, hypertension, chronic back pain and is presenting to the emergency department with chief complaint low back pain. Patient was seen and examined at bedside. Physical exam was significant for paraspinal tenderness of lumbar spine bilaterally, patient denies saddle anesthesia and loss of bowel or bladder function. Pain addressed. Patient will be discharged with anti-inflammatory, muscle relaxants, pain control, and referral to pain clinic. Patient stable for discharge with outpatient follow-up with PCP/pain management. Discussed findings and plan with patient and family, who acknowledge understanding and agreement. Dragharmony Disclaimer Dragon Disclaimer This electronic medical record was generated, in whole or in part, using a voice recognition dictation system. Departure Departure Impression: Primary Impression: Back pain Additional Impression: Sciatica Disposition: 01 HOME, SELF-CARE Condition: STABLE Referrals: LISSETH MARIO MD (PCP) NELSON DUGAN MD Patient Instructions: Back Pain, Adult, [id number], Sciatica, [id number] Scripts Orphenadrine Citrate (ORPHENADRINE CITRATE) 100 Mg Tablet.er 100 MG PO BID PRN for MUSCLE PAIN, #14 TAB Prov: CAROL STEELE DO 05/21/19 Naproxen (NAPROXEN) 375 Mg Tablet 375 MG PO TID PRN for PAIN, #30 TAB Prov: CAROL STEELE DO 05/21/19 Oxycodone/Apap 5-325 (PERCOCET 5-325 MG TABLET ) 1 Each Tablet 1 TAB PO PRN Q6HRS PRN for PAIN, #14 TAB 0 Refills Prov: CAROL STEELE DO 05/21/19 Lidocaine (Lidocaine) 1 Each Adh..patch 1 EACH TP Q12HR, #10 PATCH Leave patch on for 12 hours then must remove and leave off for next 12 hours prior to placement of new patch Prov: CAROL STEELE DO 05/21/19 Problem Qualifiers Primary Impression: Back pain Back pain location: low back pain Chronicity: acute Back pain laterality: right Sciatica presence: with sciatica Sciatica laterality: sciatica of right side Qualified Codes: M54.41 - Lumbago with sciatica, right side Additional Impression: Sciatica Laterality: right Qualified Codes: M54.31 - Sciatica, right side CAROL STEELE DO May 21, 2019 16:25
[2019-05-21] MEDS: KETOROLAC 30 MG/ML VIAL. IM ONE (16:29)
[2019-05-21] MEDS: MORPHINE SULFATE 10 MG/ML VIAL. IM ONE (16:29)
[2019-05-21] MEDS: DEXAMETHASONE 4 MG TABLET PO ONE (16:29)
[2019-05-21] MEDS: ORPHENADRINE CITRATE 60 MG/2 ML VIAL. IM ONE (16:30)
[2019-05-21] MEDS: LIDOCAINE (700MG/PATCH) PATCH. TD ONE (16:30)
[2019-05-21] MEDS: ONDANSETRON PF 4 MG/2 ML VIAL. IVP ONE (17:02)
[2019-05-21] MEDS: HYDROmorphone 2 MG/ML VIAL IVP ONE (17:03)
[2019-05-21 17:20] VITALS: BP 154/89
== END 2019-05-21 17:30 | disposition home or self-care (01) ==
LOC: ER 15:51
DX: M54.41 Lumbago with sciatica, right side (principal); E11.9 Type 2 diabetes mellitus without complications; I10 Essential (primary) hypertension; G89.29 Other chronic pain; Z87.891 Personal history of nicotine dependence
CPT/HCPCS: 96372; 96374; 96375; 99284; J1170; J1885; J2270; J2360; J2405; J8540

== ENCOUNTER → 2019-06-23 | Outpatient (CLI) | payer OTHER ==
[~2019-06-23] MED LIST changes: +CITA20TA6 PO; +DULA1.5P SQ; +INSU100I32 SQ; +LIDO1ADH63 TP; +NAPR-695 PO; +OMEP40CA45 PO; +ORPH100T PO; +OXYC1TAB15 PO
--- NOTE | 2019-06-23 13:00 | KCIC ---
MRI Lumbar Spine without contrast History: Lumbar radiculopathy, leg weakness, right low back pain, right lower extremity numbness for 3 weeks Technique: Multiplanar, multi sequential noncontrast MR imaging was performed of the lumbar spine. Comparison: None Findings: Lumbar vertebral body stature is mostly maintained other than inferior L1 Schmorl's node not associated with edema. There is moderate to severe L2-3 degenerative disc disease and moderate degenerative disc disease greater posteriorly at L5-S1, mild disc desiccation L3-4. There are annular tears posteriorly at L2-3, L3-4, and L5-S1 and anteriorly at L3-4. Conus terminates near L1. AP alignment is within normal limits. Not fully evaluated, there is at least 6.9 cm transverse focus of T2 hyperintense signal in the left abdomen. A cyst was seen in this region on previous CT exam 2017 although larger than that exam when measured about 5.2 cm transverse. T12-L1: Spinal canal and neural foramina are adequate. There is a shallow protrusion in the right lateral recess. L1-L2: Spinal canal and neural foramina are adequate. L2-L3: There is a posterior bulge/broad protrusion about 3 mm AP with indentation upon the thecal sac greater in the far lateral recesses, left greater than right. There is very mild narrowing of the far lateral recesses greater on the left, central canal adequate. Neural foramina are adequate. L3-L4: Spinal canal is overall adequate. Neural foramina are not significantly narrowed. L4-L5: There is negligible disc osteophyte complex. Spinal canal is adequate. Neural foramina are overall adequate. There is small hemangioma of the right L5 vertebral body. L5-S1: Better appreciated on the T1 sequence, there is extradural signal abnormality in the anterior right lateral recess extending below the intervertebral disc space estimated about 1.1 cm transverse by about 0.5 cm AP by 0.7 cm CC. There is posterior displacement of the descending right S1 nerve root, moderate to severe right lateral recess stenosis. This is somewhat hyperintense on the T2 sequence compared with adjacent disc. There is inferior extent to the approximate mid one half level of the S1 vertebral body. Central canal and left lateral recess are adequate. There is ydsg-lg-[id number] of the right neural foramen by facet and minimal disc osteophyte complex. Left neural foramen is overall adequate. Impression: 1. Better seen on the T1 sequences, there is extradural signal abnormality in the anterior right recess extending below the L5-S1 intervertebral disc space level presumably due to extrusion with right lateral recess stenosis and posterior displacement of the descending right S1 nerve root. There is [id number]-[id number] narrowing of the right L5-S1 neural foramen as described. 2. There is degenerative disc disease greatest at L2-3 and to lesser degree at L5-S1. 3. Not fully included, there is a large T2 hyperintense lesion of the left abdomen at which there was a cyst on previous CT although larger than that exam. Electronically signed by: Collins Karimi MD (06/23/2019 12:57 PM) [facility]
[2019-07-11 13:53] VITALS: BP 114/67
== END | disposition home or self-care (01) ==
LOC: KCIC MRI 10:15
PROVIDERS: ATTEND Family Medicine
DX: M51.16 Intervertebral disc disorders with radiculopathy, lumbar region (principal); M51.24 Other intervertebral disc displacement, thoracic region; M48.07 Spinal stenosis, lumbosacral region
CPT/HCPCS: 72148

== ENCOUNTER → 2019-07-07 | Outpatient (CLI) | payer OTHER ==
--- NOTE | 2019-07-08 00:06 | PAIN ---
DATE OF SERVICE: 07/07/2019 INITIAL CONSULTATION FOR PAIN CLINIC CHIEF COMPLAINT: Low back and right lower extremity pain. HISTORY OF PRESENT ILLNESS: This is a 58-year-old male with history of low back pain since . He was twisting to his right side, picking up his grandson and felt a significant pain in the low back, which has been radiating to the lower extremity in the posterior gluteus, posterior thigh, posterior calf and into the foot. Since that time, the patient reports it got slightly better initially, but now is getting worse. The patient reports no loss of motor function, but significant fatigability with right lower extremity. The patient describes the pain as sharp, stabbing, shooting and throbbing, becoming more constant, aching and cramping, burning as well as some tingling and numbness across the low back and aching, dull ache across the low back as well. The patient reports it awakens him from sleep at least twice a night. He is sleeping in a recliner for the past 2 months. It does not affect his bowel or bladder control, but does affect his ability to walk. He has a cane with him today and has a walker that he uses as well he reports. The patient is taking oxycodone, also naproxen, and orphenadrine. The naproxen and oxycodone do decrease the pain by about 30-40%. The patient has tried physical therapy and is doing exercises on his own currently, but not decreasing the pain significantly. The patient reports physical therapy with his back has actually been more painful. The patient is still doing some stretching, but that is about all the activity he is able to do. The patient reports it is much worse with walking, standing, changing positions, better with sitting or lying down initially, but that again is awakening him from sleep at least twice a night. The patient rates his disability rating from 0-10, is 10 being the worst, is a 7 with family home responsibilities, recreation, social activity, sexual behavior and self-care, 10 with occupational activity and 3 with life support activities. The patient did have MRI scan of the lumbar spine showing L5-S1 an extradural signal abnormality with posterior displacement of the thinning right S1 nerve root, moderate to severe right lateral recess stenosis. There is inferior extent to the approximate mid one half level of the S1 vertebral body. The patient reports significant fatigability to right lower extremity, especially with standing, walking, even more than about 10-15 minutes, it is beginning to affect his performance at work as well. PAST MEDICAL HISTORY: Significant for type 2 diabetes, hypertension, arthritis, cigarette smoking, quit 15 years ago. PREVIOUS SURGERY: Includes tonsillectomy at age 5 in the left knee replacement in 2018. CURRENT MEDICATIONS: Include meloxicam, naproxen, orphenadrine, Percocet, omeprazole, Trulicity, citalopram, insulin, multivitamins, metformin, lisinopril, and glimepiride. ALLERGIES: The patient has no known drug allergies. FAMILY HISTORY: Significant for diabetes and hypertension. SOCIAL HISTORY: The patient does not drink alcohol, does not smoke, quit 15 years ago. He does not use any illegal, illicit or recreational drugs. He is , lives with his spouse, lives locally in [place], [place]. 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 REVIEW OF SYSTEMS: The patient's review of systems is positive for those items mentioned in history of present illness. All systems reviewed and otherwise negative. It is complete, full and well documented on the patient's chart. PHYSICAL EXAMINATION: VITAL SIGNS: The patient's blood pressure is 154/97, pulse 96, respirations 18, temperature is 98.1 degrees Fahrenheit, height is 5 feet 11 inches, and weight is 203 pounds. GENERAL: The patient is awake, alert, oriented, appropriate, very pleasant demeanor. The patient is accompanied by his . HEENT: Shows normocephalic, atraumatic. Extraocular movements are intact and symmetrical. Oral cavity: Mucous membranes moist and pink. Dentition is intact. NECK: Shows anterior throat supple without palpable lymphadenopathy noted. Swallow reflex symmetrical. CHEST: Shows normal on inspection. Breath sounds are clear bilaterally. HEART: Shows S1, S2 clear. No murmurs auscultated. ABDOMEN: Soft, nontender, nondistended. No palpable organomegaly is noted. No rebound or guarding demonstrated. BACK: Shows spine grossly in the midline. Normal appearing thoracic kyphosis, some minor flattening of lumbar lordotic curvature. Lumbar paraspinous muscle shows symmetrical on inspection, with palpation shows some mild tenderness throughout the upper, middle and lower distribution of the paraspinous muscles, more on the right than the left, but present bilaterally. No tenderness over the sacrum and sacroiliac regions or the spinous processes. The patient has good rotational motion of lumbar spine, both laterally as well as extension and flexion without significant increase in pain. EXTREMITIES: Lower extremities show deep tendon reflexes 2+ in the patellar, 1+ tendo-calcaneus tendons. Motor exam is approximately 4 on a scale of 5 with right lower extremity flexion, extension as well as quadriceps and hamstring flexion and 5/5 on the left. Peripheral pulses are 1+ posterior tibia. No peripheral edema is noted bilaterally. The patient's lower extremities are warm and dry to touch, equal in color and appearance. Straight leg raise noted to be positive on the right side about 30-35 degrees, decreased with knee flexion, but significant pain radiating to posterior gluteus and posterior thigh with leg raise on the right side only. Left side is negative. Gaenslen's and Brandt's maneuvers are grossly negative bilaterally. The patient is able to stand, stand on his toes without significant difficulty, but is walking with a significant gait favoring the right lower extremity with ambulation. Again, the patient is walking with a cane in his left hand today. SKIN: Shows warm and dry, good turgor. No edema. No sores, rashes or bruising throughout. IMPRESSION: 1. This is a 58-year-old male with approximate 2-month history of low back and right lower extremity pain in a radicular fashion following an L5-S1 dermatomal distribution. 2. MRI scan of lumbar spine as noted. 3. Hypertension. 4. Arthritis. 5. Type 2 diabetes. PLAN: Options were discussed with the patient including conservative medical managements, continued physical therapies and interventional techniques. He would like to pursue interventional techniques as he is doing physical therapies and stretching and strengthening exercises on his own without significant improvement. We discussed a lumbar epidural steroid injection using description as well as anatomical models to describe the procedure. The patient would like to wait for preauthorization with his insurance provider. We will wait for this, have him return for lumbar epidural steroid injection in translaminar approach at the L5-S1 level at that time for his L5-S1 right-sided radiculopathy. In the meantime, the patient will continue with stretching and strengthening exercises as tolerated. We discussed oral steroids, but his blood sugar has been a problem with these in the past. We will hold on this and wait for preauthorization and plan on lumbar epidural steroid injection at that time. NELSON DUGAN MD DR: ANJU/sagrario JOB#: [id number] / [id number] LISSETH Yeh MD
== END | disposition home or self-care (01) ==
LOC: PNCL 09:39
PROVIDERS: ATTEND Anesthesiology
DX: M54.40 Lumbago with sciatica, unspecified side (principal); M79.604 Pain in right leg; E11.9 Type 2 diabetes mellitus without complications; I10 Essential (primary) hypertension; M19.90 Unspecified osteoarthritis, unspecified site; F17.210 Nicotine dependence, cigarettes, uncomplicated; Z79.899 Other long term (current) drug therapy
CPT/HCPCS: G0463

== ENCOUNTER → 2019-07-21 | Outpatient (CLI) | payer OTHER ==
[2019-07-12 14:56] VITALS: BP 134/80
[~2019-07-21] MED LIST changes: +IOHEXOL 180 MG/ML 10 ML VIAL. ONE; +methylPREDNISolone ACETATE 40 MG/ML VIAL. ONE; +methylPREDNISolone ACETATE 80 MG/ML VIAL. ONE
--- NOTE | 2019-07-21 10:57 | PAIN ---
DATE OF SERVICE: 07/21/2019 PROGRESS NOTE FOR PAIN CLINIC DIAGNOSES: Lumbar radiculopathy with lumbar degenerative disk disease and lumbar herniated disk. HISTORY OF PRESENT ILLNESS: The patient is a 58-year-old male who returns for followup status post initial evaluation and preauthorization for lumbar epidural steroid injection. The patient has obtained that now and would like to proceed. The patient reports still pain in the low back, right lower extremity, posterior gluteus, posterior thigh, posterior calf, as well as previously, tingling, burning, cramping, aching, and sharp pain shooting, on and off in intensity, but present as it was. The patient reports it is a 5 on a scale of 10 at its worst over the past week, 4 on average and 4 at its least and is a 4 today. The patient reports no new motor or sensory deficits, no new bowel or bladder incontinence. PHYSICAL EXAMINATION: VITAL SIGNS: The patient's blood pressure 117/47, pulse 88, respirations 18, temperature 98.2 degrees Fahrenheit, height is 5 feet 11 inches and weight is 300 pounds. GENERAL: The patient is awake, alert, oriented, appropriate, very pleasant demeanor. HEENT: Head shows normocephalic, atraumatic. Extraocular movements are intact and symmetrical. Oral cavity: Mucous membranes moist and pink. Dentition is intact. NECK: Shows anterior throat supple without palpable lymphadenopathy noted. Swallow reflex symmetrical. CHEST: Shows normal on inspection. Breath sounds are clear bilaterally. HEART: Shows S1, S2 clear. No murmurs auscultated. ABDOMEN: Soft, nontender, nondistended. No palpable organomegaly is noted. No rebound or guarding demonstrated. BACK: Shows spine grossly in the midline. Normal appearing thoracic kyphosis and some slight flattening of lumbar lordotic curvature. Lumbar paraspinous muscle shows symmetrical on inspection, on palpation shows some moderate tenderness diffusely bilaterally going diffusely without radiation. The patient has good rotational motion of lumbar spine as well as extension and flexion. EXTREMITIES: Lower extremities show deep tendon reflexes 2+ in the patellar and tendo calcaneus tendons. Motor exam is approximately 4 on a scale of 5 on the right with dorsiflexion and extension, 5/5 on the left. Peripheral pulses are 1+ in the posterior tibia. No peripheral edema is noted bilaterally. Options were discussed with the patient. The patient's old chart was reviewed as her current medication regimen updated. Current review of systems updated today as well. We will proceed with a lumbar epidural steroid injection today with fluoroscopic guidance. Risks were discussed including but not limited to bleeding, infection, possibility of epidural hematoma, subsequent neurological compromise, dural puncture, headaches, spinal cord and/or nerve damage, side effects of steroid medication and poor results regarding pain control. The patient understands and wished to proceed. The patient will return to clinic in approximately 2 weeks for followup. She was counseled as to return appointment, activity level and side effects to be aware of. DIAGNOSIS: Lumbar radiculopathy with lumbar degenerative disk disease and lumbar herniated disk. PROCEDURE: Lumbar epidural steroid injection, translaminar approach L5-S1 level using C-arm fluoroscopic guidance under sterile prep and drape using local anesthetic. MEDICATION INJECTED: A total of 120 mg Depo-Medrol plus 10 mL of preservative-free normal saline and 2 mL of contrast. CONDITION AT DISCHARGE: Stable. The patient tolerated procedure well, had no complications. NELSON DUGAN MD DR: ANJU/sagrario JOB#: [id number] / [id number]
== END ==
LOC: PNCL 09:13
PROVIDERS: ATTEND Anesthesiology
DX: M51.16 Intervertebral disc disorders with radiculopathy, lumbar region (principal)
CPT/HCPCS: 62323; J1030; J1040; Q9965

== ENCOUNTER → 2019-10-30 | Outpatient (CLI) | payer OTHER ==
[2019-07-12 14:56] VITALS: BP 134/80
[~2019-10-30] MED LIST changes: +ALBU2.5V8 IH
--- NOTE | 2019-10-30 15:42 | PAIN ---
DATE OF SERVICE: 10/30/2019 PROGRESS NOTE FOR PAIN CLINIC DIAGNOSES: Lumbar radiculopathy with lumbar degenerative disk disease with lumbar herniated disk. HISTORY OF PRESENT ILLNESS: The patient is a 59-year-old male who returns for followup status post lumbar epidural steroid injection x 1, last seen 07/21/2019. The patient did very well with this, about 50% improvement in the low back, especially his right lower extremity, which was most painful. 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 The patient reports the pain is beginning to return now over the past 4-5 weeks. The patient reports it is in the low back, right lower extremity, posterior gluteus, radiating to posterior thigh and calf, into the right foot as well. The patient reports both posteriorly and anteriorly and medially on the leg as well as posterior calf and thigh. The patient reports it is aching, shooting, tingling, burning, on and off in intensity, becoming more noticeable day by day. The patient reports it is a 3 on a scale of 10 at its worst, average and least and is a 3 on a scale of 10 today. The patient reports no new motor or sensory deficits, no new bowel or bladder incontinence or other complaints. PHYSICAL EXAMINATION: VITAL SIGNS: Today, the patient's blood pressure is 133/68, pulse 93, respirations 20, temperature 98.5 degrees Fahrenheit, height is 5 feet 11 inches, weight is 310 pounds. GENERAL: The patient is awake, alert, oriented, appropriate, very pleasant demeanor. HEENT: Shows normocephalic, atraumatic. Extraocular movements are intact and symmetrical. Oral cavity: Mucous membranes moist and pink. Dentition is intact. NECK: Shows anterior throat supple without palpable lymphadenopathy noted. Swallow reflex symmetrical. CHEST: Shows normal on inspection. Breath sounds are clear bilaterally. HEART: Shows S1, S2 clear. No murmurs auscultated. ABDOMEN: Soft, nontender, nondistended. No palpable organomegaly is noted. No rebound or guarding demonstrated. BACK: Shows spine grossly in the midline. Normal appearing thoracic kyphosis and minor flattening of lumbar lordotic curvature. Lumbar paraspinous muscle shows symmetrical on inspection, on palpation shows some moderate tenderness diffusely throughout the upper, middle and lower distribution of paraspinous muscles bilaterally without radiation. The patient has good rotational motion of lumbar spine, both laterally as well as extension and flexion without difficulty. EXTREMITIES: Lower extremities show deep tendon reflexes at 2+ in the patellar, 1+ tendo-calcaneus tendons. Motor exam is approximately 4 on a scale of 5 on the right, 5/5 on the left with dorsiflexion, extension, quadriceps and hamstring flexion. Peripheral pulses are 1+ posterior tibia. No peripheral edema is noted. Options were discussed with the patient. The patient's old chart was reviewed as his current medication regimen updated. Current review of systems updated today as well. We will proceed with a second in the series of lumbar epidural steroid injection today with fluoroscopic guidance. Risks were again discussed including, but not limited to bleeding, infection, possibility of epidural hematoma, subsequent neurological compromise, dural puncture, headaches, spinal cord and/or nerve damage, side effects of steroid medication and poor results regarding pain control. The patient understands and wished to proceed. The patient will return to clinic in approximately 2 weeks for followup. He was counseled on return appointment, activity level and side effects to be aware of. DIAGNOSIS: Lumbar radiculopathy with lumbar degenerative disk disease with lumbar herniated disk. PROCEDURE: Lumbar epidural steroid injection, translaminar approach L5-S1 level using C-arm fluoroscopic guidance under sterile prep and drape using local anesthetic. MEDICATION INJECTED: A total of 120 mg Depo-Medrol plus 10 mL of preservative-free normal saline and 2 mL of contrast. CONDITION AT DISCHARGE: Stable. The patient tolerated procedure well, had no complications. NELSON DUGAN MD DR: ANJU/sagrario JOB#: [id number] / [id number]
== END ==
LOC: PNCL 13:50
PROVIDERS: ATTEND Anesthesiology
DX: M51.16 Intervertebral disc disorders with radiculopathy, lumbar region (principal)
CPT/HCPCS: 62323; J1030; J1040; Q9965

== ENCOUNTER → 2019-11-13 | Outpatient (CLI) | payer OTHER ==
[2019-07-12 14:56] VITALS: BP 134/80
[~2019-11-13] MED LIST changes: -IOHEXOL 180 MG/ML 10 ML VIAL. ONE; -methylPREDNISolone ACETATE 40 MG/ML VIAL. ONE; -methylPREDNISolone ACETATE 80 MG/ML VIAL. ONE
--- NOTE | 2019-11-13 14:10 | PAIN ---
DATE OF SERVICE: 11/13/2019 PROGRESS NOTE FOR PAIN CLINIC DIAGNOSES: Lumbar radiculopathy with lumbar degenerative disk disease and lumbar herniated disk. HISTORY OF PRESENT ILLNESS: The patient is a 59-year-old male who returns for followup status post lumbar epidural steroid injection x 2. The patient reports significant improvement after the first injection, but the second one was not as dramatic in the reduction of pain, but still about 60% better. The patient reports he still has some numbness in his foot on the right side, which has not changed significantly, but the pain is dramatically reduced, especially after the injection. The patient reports it is a 6 on a scale of 10 at all times in the past week, as it is beginning to return, a 6 on average, 6 at its least and worst describes it as aching and dull, sharp, tight, shooting in the right lower extremity, posterior gluteus, posterior thigh, posterior calf with some numbness again in the right foot. The patient reports he did stumble once at work because of the weakness in his right leg when he has been on his feet for more than a few hours. The patient reports it as a radiating pain and again numbness in the right foot, which has been persistent. The patient reports the pain; however, has decreased significantly by about 60% overall after the first injection, initially it was about a 75-80%, but then dropped to 50-60%, now about 60% overall by his estimation. The patient reports it is generally not awaken him from sleep at night, but occasionally will. He lays on his right side. The patient reports no new motor or sensory deficits, no bowel or bladder incontinence. Initially, he was doing much better with walking, doing work activities, household activities, traveling with greater ease and comfort, but now the pain is returning as noted in a radicular fashion on the right. PHYSICAL EXAMINATION: VITAL SIGNS: The patient's blood pressure 136/80, pulse 71, respirations 16, temperature 98.5 degrees Fahrenheit, weight is 313 pounds. GENERAL: The patient is awake, alert, oriented, appropriate, very pleasant demeanor. HEENT: Shows normocephalic, atraumatic. Extraocular movements are intact and symmetrical. Oral cavity shows mucous membranes moist and pink. Dentition is intact. NECK: Shows anterior throat supple without palpable lymphadenopathy noted. Swallow reflex symmetrical. CHEST: Shows normal on inspection. Breath sounds are clear bilaterally. HEART: Shows S1, S2 clear. No murmurs auscultated. ABDOMEN: Soft, nontender, nondistended. No palpable organomegaly is noted. No rebound or guarding demonstrated. BACK: Shows spine grossly in the midline. Normal appearing thoracic kyphosis and some minor flattening of lumbar lordotic curvature. Lumbar paraspinous muscle shows symmetrical on inspection, on palpation shows some moderate tenderness diffusely bilaterally, but only diffusely without radiation. The patient has good rotational motion of lumbar spine, both laterally as well as extension and flexion without significant difficulty or pain reported. EXTREMITIES: Lower extremities show deep tendon reflexes at 2+ patellar, 1+ tendo-calcaneus tendons. Motor exam is strong with 5/5 dorsiflexion, extension, quadriceps and hamstring flexion. Peripheral pulses are 1+. No peripheral edema bilaterally. Options were discussed with the patient. The patient's old chart was reviewed as his current medication regimen updated. Current review of systems updated today as well. We will proceed with a preauthorization for a third lumbar epidural steroid injection as he still has significant radiculopathy on the right side at L5-S1 dermatomal distribution, again significantly better for several weeks after the second injection, but returning now and causing some increased fatigue and weakness in his right leg. The patient will continue with stretching and strength exercises, he has been taking [id number] anti-inflammatories as well. We will also try Medrol Dosepak, we discussed that with him, especially in concern to watch his blood sugars while taking this. The patient understands and agrees and would like to do this. In the meantime, we will wait for preauthorization for a L5-S1 translaminar approach lumbar epidural steroid injection for his L5-S1 right-sided lumbar radiculopathy. NELSON DUGAN MD DR: ANJU/sagrario JOB#: [id number] / [id number]
== END | disposition home or self-care (01) ==
LOC: PNCL 12:49
PROVIDERS: ATTEND Anesthesiology
DX: M51.16 Intervertebral disc disorders with radiculopathy, lumbar region (principal)
CPT/HCPCS: G0463